=== PATIENT | female | born 1995 | race Caucasian/White ===

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

== ENCOUNTER 2017-06-22 10:46 | Outpatient (CLI) | payer OTHER | END 2017-06-22 10:47 | disposition critical access hospital (66) | LOC: EMS 10:46 | PROVIDERS: ATTEND Surgery | DX: R56.9 Unspecified convulsions (principal) | CPT/HCPCS: A0425; A0427 ==

== ENCOUNTER 2017-06-22 11:18 | Emergency (ER) | payer OTHER ==
[2017-06-22] MEDS ORDERED: LORazepam 2 MG/ML VIAL IVP STA ×2 (11:38→12:23)
[2017-06-22] MEDS ORDERED: SODIUM CHLORIDE 0.9% 1,000 ML IV ONE (11:49)
[2017-06-22] MEDS ORDERED: cefTRIAXone 1 GM in SODIUM CHLORIDE 0.9% MINIBAG 100 ML IV STA (11:49)
--- NOTE | 2017-06-22 11:52 | ED Physician Documentation ---
PD HPI SEIZURE - Stated complaint Stated Complaint: SZ - Chief complaint Chief Complaint: Neuro - History obtained from History obtained from: Family, EMS - History of Present Illness Timing - onset: Enter time (1030), Today Witnessed: Witnessed Number of seizures: Multiple, Lasted minutes Description of seizure activity: Generalized Injury during seizure: None Associated symptoms: Unknown History of seizures: First seizure Contributing factors: Sleep deprivation Similar symptoms before: Has not had sx before Recently seen: Not recently seen - Additional information Additional information: 23-year-old female with a history of depression on SSRI has developed acute seizure this morning witnessed by a family member. The patient did have a second seizure witnessed by medics in route to the hospital and she was administered Valium 5 mg intravenously. She has pulled the IV out and he has become uncooperative. The parents are uncertain of any recent illness that they do note that she has vomited yesterday. 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 CLASSIFICATION MANAGER: None : None HEENT: Chronic vision loss Psych: Depression, Anxiety Musculoskeletal: Fatigue Derm: None - Past Surgical History Past Surgical History: Yes Ortho: Other /POSITION CLASSIFICATION MANAGER: Hysterectomy, Breast reduction, Breast implants Derm: Other - Present Medications Home Medications: Ambulatory Orders Medication Instructions Recorded Confirmed Paroxetine HCl [Paxil] 20 mg PO DAILY #30 tablet 12/06/16 Sertraline HCl [Zoloft] 100 mg PO DAILY 12/06/16 12/06/16 - Allergies Allergies/Adverse Reactions: Allergies Allergy/AdvReac Type Severity Reaction Status Date / Time Penicillins Allergy Unknown Verified 12/06/16 16:46 - Social History Does the pt smoke?: No Smoking Status: Never smoker Does the pt drink ETOH?: No Does the pt have substance abuse?: No - Immunizations Immunizations are current?: Yes - POLST Patient has POLST: Yes PD ED PE NORMAL - Vitals Vital signs reviewed: Yes (hypertensive mild ) - General General: Well developed/nourished, Other (The patient is actively seizing. ) - HEENT HEENT: Atraumatic, PERRL, EOMI, Other (both TM's are mildly inflamed mucous membranes are dry) - Neck Neck: Supple, no meningeal sign, No bony TTP - Cardiac Cardiac: RRR, No murmur - Respiratory Respiratory: No respiratory distress, Clear bilaterally - Abdomen Abdomen: Soft, Non tender - Back Back: No CVA TTP, No spinal TTP - Derm Derm: Normal color, Warm and dry, No rash - Extremities Extremities: No deformity, No edema - Neuro Neuro: No motor deficit, No sensory deficit Eye Opening: To Voice Motor: Localizes to Pain Verbal: Inappropriate GCS Score: 11 Results - Vitals Vitals: Vital Signs - 24 hr 06/22/17 06/22/17 06/22/17 11:19 12:35 14:30 Temperature 36.1 C L Heart Rate 62 79 94 Respiratory 18 22 20 Rate Blood Pressure 135/65 H 106/61 O2 Saturation 98 100 97 06/22/17 15:31 Temperature Heart Rate 99 Respiratory 20 Rate Blood Pressure 94/55 L O2 Saturation 98 Oxygen O2 Source Room air - Labs Labs: Laboratory Tests 06/22/17 06/22/17 06/22/17 12:10 12:10 12:10 WBC 17.3 H RBC 4.81 Hgb 12.5 Hct 40.4 MCV 84.2 MCH 26.1 L MCHC 31.0 L RDW 16.3 H Plt Count 282 MPV 10.0 Neut # Not Reportable Lymph # Not Reportable [place] # Not Reportable Eos # Not Reportable Baso # Not Reportable Absolute Nucleated RBC Not Reportable Total Counted 100 Band Neuts % (Manual) 5 Abnorm Lymph % (Manual) 0 Metamyelocytes % 1 H Other Cells % 9 Nucleated RBC % Not Reportable Neutrophils # (Manual) 10.6 H Lymphocytes # (Manual) 3.5 Monocytes # (Manual) 1.4 H Eosinophils # (Manual) 0.2 Basophils # (Manual) 0.0 Differential Comment MANUAL DIFFERENTIAL Platelet Estimate NORMAL (130-450,000) Platelet Morphology 1+ GIANT PLATELETS RBC Morph Micro Appear NORMAL APPEARANCE Sodium 143 Potassium 3.3 L Chloride 108 Carbon Dioxide 14 L Anion Gap 21.0 H BUN 8 Creatinine 0.7 Estimated GFR (MDRD) 107 Glucose 161 H Calcium 9.7 Total Bilirubin 0.6 AST 33 ALT 25 Alkaline Phosphatase 76 Total Protein 8.8 H Albumin 4.6 Globulin 4.2 Albumin/Globulin Ratio 1.1 Lipase < 10 L Urine Color Urine Clarity Urine pH Ur Specific Beacon Urine Protein Urine Glucose (UA) Urine Ketones Urine Occult Blood Urine Nitrite Urine Bilirubin Urine Urobilinogen Ur Leukocyte Esterase Urine RBC Urine WBC Ur Squamous Epith Cells Urine Bacteria Urine Casts Urine Mucus Ur Microscopic Review Urine Culture Comments Urine HCG, Qual Salicylates < 6.0 Urine Opiates Screen Ur Oxycodone Screen Urine Methadone Screen Ur Propoxyphene Screen Acetaminophen < 10 L Ur Barbiturates Screen Ur Tricyclics Screen Ur Phencyclidine Scrn Ur Amphetamine Screen U Methamphetamines Scrn U Benzodiazepines Scrn Urine Cocaine Screen U Cannabinoids Screen Ethyl Alcohol < 5.0 06/22/17 06/22/17 14:20 14:20 WBC RBC Hgb Hct MCV MCH MCHC RDW Plt Count MPV Neut # Lymph # [place] # Eos # Baso # Absolute Nucleated RBC Total Counted Band Neuts % (Manual) Abnorm Lymph % (Manual) Metamyelocytes % Other Cells % Nucleated RBC % Neutrophils # (Manual) Lymphocytes # (Manual) Monocytes # (Manual) Eosinophils # (Manual) Basophils # (Manual) Differential Comment Platelet Estimate Platelet Morphology RBC Morph Micro Appear Sodium Potassium Chloride Carbon Dioxide Anion Gap BUN Creatinine Estimated GFR (MDRD) Glucose Calcium Total Bilirubin AST ALT Alkaline Phosphatase Total Protein Albumin Globulin Albumin/Globulin Ratio Lipase Urine Color YELLOW Urine Clarity CLEAR Urine pH 5.5 Ur Specific Beacon >=1.030 H Urine Protein TRACE Urine Glucose (UA) NEGATIVE Urine Ketones NEGATIVE Urine Occult Blood SMALL H Urine Nitrite NEGATIVE Urine Bilirubin NEGATIVE Urine Urobilinogen 0.2 (NORMAL) Ur Leukocyte Esterase NEGATIVE Urine RBC 0-5 Urine WBC 0-3 Ur Squamous Epith Cells FEW Squamous Urine Bacteria Few Urine Casts 0-2 Hyaline Casts Urine Mucus Few Strands Ur Microscopic Review INDICATED Urine Culture Comments NOT INDICATED Urine HCG, Qual NEGATIVE Salicylates Urine Opiates Screen NEGATIVE Ur Oxycodone Screen NEGATIVE Urine Methadone Screen NEGATIVE Ur Propoxyphene Screen NEGATIVE Acetaminophen Ur Barbiturates Screen POSITIVE H Ur Tricyclics Screen NEGATIVE Ur Phencyclidine Scrn NEGATIVE Ur Amphetamine Screen NEGATIVE U Methamphetamines Scrn NEGATIVE U Benzodiazepines Scrn NEGATIVE Urine Cocaine Screen NEGATIVE U Cannabinoids Screen POSITIVE H Ethyl Alcohol - Rads (name of study) CT head without Radiology: Prelim report reviewed (Impression: Normal head CT.), EMP read indepedently, See rad report 1 veiw chest Radiology: Prelim report reviewed (Impression: Single view radiography demonstrates no definite acute abnormality of the chest.), EMP read indepedently , See rad report PD MEDICAL DECISION MAKING - ED course Complexity details: reviewed results, re-evaluated patient, considered differential, d/w family ED course: 22-year-old female with a prior history of depression has had acute onset of seizure today and has no prior history of seizure. She did have otitis on examination and on initial evaluation the patient was unable to give any specific history. She appears postictal. She has a third seizure in the emergency department generalized tonic-clonic and requires IM Ativan. After a second IM dose of Ativan for a fourth seizure and IV is established she is given a i.v. dose of Ativan for seizure, rocephin for the OM and Dilantin is begun. She is initially given a 900 mg loading dose of 12.5 mg/kg and this improves but is not sufficient to stop the patient's seizures altogether. She is given a second loading dose of 600 mg for a total of 20 mg/kg. She is sedated and no longer seizing. She is able to speak a few words but does not make sense. CT is without evidence of acute tumor or abnormality. Blood work is unremarkable. Tox screen is unremarkable.Dr. Iris Morales is consulted in the case at [facility] neurology and recommends transfer the patient to the CCU for treatment of status epilepticus. Departure - Departure Disposition: 02 Transfer Acute Care Hosp Clinical Impression: Status epilepticus Discharge Date/Time: 06/22/17 15:45
[2017-06-22] MEDS: LORazepam 2 MG/ML VIAL IVP STA ×2 (12:10→12:25)
[2017-06-22] MEDS ORDERED: LORazepam 2 MG/ML VIAL ONE (12:10)
[2017-06-22] MEDS ORDERED: PHENYTOIN 100 MG/2 ML VIAL IVP STA ×2 (12:23→13:39)
[2017-06-22 12:29] LABS: BASOPHILS % (AUTO) 0.4 %; EOSINOPHILS % (AUTO) 1.1 %; HGB - HEMOGLOBIN 12.5 g/dL (12.0-16.0); LYMPHOCYTES % (AUTO) 27.5 %; MEAN CORPUSCULAR HEMOGLOBIN 26.1 pg (27.0-31.0); MEAN CORPUSCULAR VOLUME 84.2 fL (81.0-99.0); MONOCYTES % (AUTO) 7.6 %; NEUTROPHILS % (AUTO) 63.4 %; PLT - PLATELET COUNT 282 10^3/uL (130-450); RED BLOOD COUNT 4.81 10^6/uL (4.20-5.40); RED CELL DISTRIBUTION WIDTH 16.3 % (12.0-15.0); WHITE BLOOD COUNT 17.3 x10^3/uL (4.8-10.8)
[2017-06-22 12:31] LABS: ABNORMAL LYMPHS % (MANUAL) 0 %
[2017-06-22 12:39] LABS: ALBUMIN 4.6 g/dL (3.2-5.5); ALBUMIN/GLOBULIN RATIO 1.1 (1.0-2.2); ALKALINE PHOSPHATASE 76 IU/L (42-121); ALT ALANINE AMINOTRANSFERASE 25 IU/L (10-60); AST ASPARTATE AMINOTRANSFERASE 33 IU/L (10-42); BILIRUBIN,TOTAL 0.6 mg/dL (0.2-1.0); BUN - BLOOD UREA NITROGEN 8 mg/dL (6-20); CALCIUM 9.7 mg/dL (8.5-10.3); CARBON DIOXIDE - CO2 14 mmol/L (21-32); CHLORIDE 108 mmol/L (101-111); CREATININE 0.7 mg/dL (0.4-1.0); GFR - MDRD 107 (>89); GLUCOSE 161 mg/dL (70-100); SODIUM 143 mmol/L (135-145); TOTAL PROTEIN 8.8 g/dL (6.7-8.2)
[2017-06-22 12:40] LABS: LIPASE < 10 U/L (22-51)
[2017-06-22 13:04] LABS: BAND NEUTROPHILS % (MANUAL) 5 %; EOSINOPHILS # (MANUAL) 0.2 10^3/uL (0-0.7); LYMPHOCYTES # (MANUAL) 3.5 10^3/uL (1.5-3.5); LYMPHOCYTES % (MANUAL) 20 %; METAMYELOCYTES % (MANUAL) 1 %; MONOCYTES # (MANUAL) 1.4 10^3/uL (0.0-1.0); NEUTROPHILS # (MANUAL) 10.6 10^3/uL (1.5-6.6); NEUTROPHILS % (MANUAL) 56 %
[2017-06-22 13:05] LABS: OTHER CELLS % (MANUAL) 9 %; PLATELET MORPHOLOGY 1+ GIANT PLATELETS (NORMAL); RBC MORPHOLOGY (MULTIPLE) NORMAL APPEARANCE (NORMAL)
[2017-06-22 13:06] LABS: DIFFERENTIAL COMMENT MANUAL DIFFERENTIAL; PLATELET ESTIMATE, MANUAL NORMAL (130-450,000) (NORMAL)
--- NOTE | 2017-06-22 13:54 | CT Report ---
EXAM: CT HEAD EXAM DATE: 06/22/2017 01:14 PM. CLINICAL HISTORY: 1st seizure. COMPARISON: None. TECHNIQUE: Multiaxial CT images were obtained from the foramen magnum to the vertex. Reformats: Coron al. IV contrast: None. In accordance with CT protocol optimization, one or more of the following dose reduction techniques w ere utilized for this exam: automated exposure control, adjustment of mA and/or KV based on patient s ize, or use of iterative reconstructive technique. FINDINGS: Parenchyma: No intraparenchymal hemorrhage. No evidence of mass, midline shift, or CT findings of inf arction. Belle-white differentiation is distinct. Extraaxial Spaces: Normal for age. No subdural or epidural collections identified. Ventricles: Normal in size and position. Sinuses and Orbits: Imaged paranasal sinuses, orbits, and mastoids show no significant abnormality. Bones: No evidence of fracture or calvarial defect. Other: None. IMPRESSION: Normal head CT. [facility] Referring Provider Line: [phone] SITE ID: [id number]
[2017-06-22] MEDS ORDERED: PHENYTOIN IV SCH (14:00)
[2017-06-22] MEDS ORDERED: SODIUM CHLORIDE 0.9% IV SCH (14:00)
--- NOTE | 2017-06-22 14:18 | XRAY Report ---
EXAM: CHEST RADIOGRAPHY EXAM DATE: 06/22/2017 01:24 PM. CLINICAL HISTORY: Seizure, fever. COMPARISON: None. TECHNIQUE: 1 view. FINDINGS: Lungs/Pleura: Limited lung volumes. No definite pulmonary infiltrate. No pleural effusion or pneumoth orax. Mediastinum: Within exam limitations, the cardiomediastinal contour is normal. Other: None. IMPRESSION: Single-view radiography demonstrates no definite acute abnormality of the chest. [facility] Referring Provider Line: [phone] SITE ID: [id number]
[2017-06-22 14:28] LABS: MUDS CUTOFF CONCENTRATIONS CUTOFF CONC BELOW:
[2017-06-22 14:33] LABS: BILIRUBIN,URINE NEGATIVE (NEGATIVE); GLUCOSE, URINE (UA) NEGATIVE (NEGATIVE); KETONES,URINE (UA) NEGATIVE (NEGATIVE); LEUKOCYTE ESTERASE, URINE NEGATIVE (NEGATIVE); NITRITE,URINE NEGATIVE (NEGATIVE); OCCULT BLOOD,URINE SMALL (NEGATIVE); PH,URINE 5.5 PH (5.0-7.5); PROTEIN,URINE TRACE mg/dL (NEGATIVE); UROBILINOGEN,URINE 0.2 (NORMAL) E.U./dL (NORMAL)
[2017-06-22 14:34] LABS: CLARITY,URINE CLEAR (CLEAR); HCG UR QUAL NEGATIVE
[2017-06-22 14:42] LABS: BACTERIA,URINE Few /HPF (None Seen); CASTS, URINE 0-2 Hyaline Casts /LPF; MUCUS,URINE Few Strands; RBC,URINE 0-5 /HPF (0-5); SQUAMOUS EPITHELIAL CELL,UR FEW Squamous (<= Few)
[2017-06-22 14:43] LABS: AMPHETAMINE SCREEN,URINE NEGATIVE (NEGATIVE); BENZODIAZEPINES SCREEN, URINE NEGATIVE (NEGATIVE); COCAINE SCREEN URINE NEGATIVE (NEGATIVE); METHADONE SCREEN, URINE NEGATIVE (NEGATIVE); METHAMPHETAMINES SCREEN, URINE NEGATIVE (NEGATIVE); OPIATE SCREEN, URINE NEGATIVE (NEGATIVE); OXYCODONE SCREEN, URINE NEGATIVE (NEGATIVE); PROPOXYPHENE SCREEN, URINE NEGATIVE (NEGATIVE); TRICYCLIC ANTIDEPRESSANT,URINE NEGATIVE (NEGATIVE)
[2017-06-22 14:54] LABS: SALICYLATE < 6.0 mg/dL
[2017-06-22 14:55] LABS: ACETAMINOPHEN < 10 ug/mL (10-30)
[2017-06-22 15:36] VITALS: BP 94/55
== END 2017-06-22 15:45 | disposition short-term general hospital (02) ==
LOC: EDUNIT# → ED 11:18
DX: G40.901 Epilepsy, unspecified, not intractable, with status epilepticus (principal); H66.93 Otitis media, unspecified, bilateral
CPT/HCPCS: 36415; 70450; 71045; 80053; 80306; 80307; 80320; 80329; 81001; 81025; 83690; 85025; 96365; 96367; 96375; 96376; 99284; 99285; J2060; 81003; 87086

== ENCOUNTER 2017-06-22 15:49 | Outpatient (CLI) | payer OTHER | END 2017-06-22 15:50 | disposition short-term general hospital (02) | LOC: EMS 15:49 | PROVIDERS: ATTEND Surgery | DX: R56.9 Unspecified convulsions (principal) | CPT/HCPCS: A0170; A0425; A0426 ==

== ENCOUNTER 2017-10-11 09:34 | Outpatient (CLI) | payer OTHER | END 2017-10-11 09:35 | disposition critical access hospital (66) | LOC: EMS 09:34 | PROVIDERS: ATTEND Surgery | DX: R56.9 Unspecified convulsions (principal) | CPT/HCPCS: A0425; A0427 ==

== ENCOUNTER 2017-10-11 10:13 | Emergency (ER) | END 2017-10-11 14:19 | disposition short-term general hospital (02) | CPT/HCPCS: 36415; 51702; 70450; 71045; 72125; 80048; 80306; 82550; 84703; 85025; 93005; 96365; 96375; 99284; 99285; J2060 ==

== ENCOUNTER 2018-01-03 10:39 | Outpatient (CLI) | payer OTHER | END 2018-01-03 10:40 | disposition critical access hospital (66) | LOC: EMS 10:39 | PROVIDERS: ATTEND Surgery | DX: R56.9 Unspecified convulsions (principal) | CPT/HCPCS: A0425; A0427 ==

== ENCOUNTER 2018-01-03 11:21 | Observation (INO) | payer OTHER ==
--- NOTE | 2018-01-03 12:44 | ED Physician Documentation ---
PD HPI SEIZURE - Stated complaint Stated Complaint: SZ - Chief complaint Chief Complaint: Neuro - History obtained from History obtained from: Patient, Family - History of Present Illness Timing - onset: Enter time (1045), Today Witnessed: Witnessed Number of seizures: Multiple, Lasted minutes, Recovered between seizure Description of seizure activity: Generalized Injury during seizure: None Associated symptoms: Nausea / vomiting, Other (diaphoretic this morning and was awake all night.) History of seizures: Known seizure disorder Contributing factors: Sleep deprivation Similar symptoms before: Diagnosis (seizure) Recently seen: Admitted - Additional information Additional information: 22-year-old female with recent onset of a seizure disorder has had status twice in the past 2 months and she has now been started on a regular dose of Dilantin after her last hospitalization at [facility]. She states that she had her level checked 1 month ago and that level was good. She spent the night up last night until about 5:15 in the morning. She does not usually have this happen to her. She usually is able to get to sleep and stay asleep at night. She does take some Paxil and her Dilantin at night she is on about 300 mg of Dilantin. The patient's mother reports that she came into her room at about 1045 and found her drenched in sweat her bed wet and the patient seemed a bit confused. She helped her get into the bathroom where the mother since she might be getting ready to have a seizure and she laid her on the floor. She had a brief seizure and a brief postictal period and the patient was brought to the hospital. She slept most of her way to the hospital. She is now awake and alert. Review of Systems Constitutional: reports: Sweats. denies: Fever, Chills, Myalgias Eyes: denies: Decreased vision Ears: denies: Ear pain Nose: reports: Congestion. denies: Rhinorrhea / runny nose Throat: denies: Sore throat Cardiac: denies: Chest pain / pressure, Palpitations Respiratory: denies: Dyspnea, Cough GI: reports: Nausea. denies: Abdominal Pain, Vomiting, Constipation, Diarrhea : denies: Dysuria, Frequency Skin: denies: Rash Musculoskeletal: denies: Neck pain, Back pain, Extremity pain Neurologic: denies: Generalized weakness, Focal weakness, Numbness PD PAST MEDICAL HISTORY - Past Medical History Cardiovascular: None Respiratory: None Neuro: Seizure disorder Endocrine/Autoimmune: None GI: None SR ACCOUNT EXECUTIVE: None : None HEENT: Chronic vision loss Psych: Depression, Anxiety Musculoskeletal: Fatigue Derm: None - Past Surgical History Past Surgical History: Yes Ortho: Other /SR ACCOUNT EXECUTIVE: Hysterectomy, Breast reduction, Breast implants Derm: Other - Present Medications Home Medications: Ambulatory Orders Medication Instructions Recorded Confirmed Paroxetine HCl [Paxil] 20 mg PO DAILY PM 01/03/18 Phenytoin [Dilantin] 100 mg ORAL DAILY PM 01/03/18 01/03/18 - Allergies Allergies/Adverse Reactions: Allergies Allergy/AdvReac Type Severity Reaction Status Date / Time Penicillins Allergy Unknown Verified 01/03/18 11:27 - Social History Does the pt smoke?: No Smoking Status: Never smoker Does the pt drink ETOH?: No Does the pt have substance abuse?: No - Immunizations Immunizations are current?: Yes - POLST Patient has POLST: Yes PD ED PE NORMAL - Vitals Vital signs reviewed: Yes (normal ) - General General: Alert and oriented X 3, No acute distress, Well developed/nourished - HEENT HEENT: Atraumatic, PERRL, EOMI, Ears normal, Moist mucous membranes, Pharynx benign, Dentition benign - Neck Neck: Supple, no meningeal sign, No bony TTP - Cardiac Cardiac: RRR, No murmur - Respiratory Respiratory: No respiratory distress, Clear bilaterally - Abdomen Abdomen: Soft, Non tender - Back Back: No CVA TTP, No spinal TTP - Derm Derm: Normal color, Warm and dry, No rash - Extremities Extremities: No deformity, No edema - Neuro Neuro: Alert and oriented X 3, overhead crane technician 2-12 intact, No motor deficit, No sensory deficit, Normal speech Eye Opening: Spontaneous Motor: Obeys Commands Verbal: Oriented GCS Score: 15 - Psych Psych: Normal mood, Normal affect Results - Vitals Vitals: Vital Signs - 24 hr 01/03/18 01/03/18 01/03/18 11:21 13:19 14:25 Temperature 36.1 C L Heart Rate 72 78 132 H Respiratory 16 21 25 H Rate Blood Pressure 112/60 126/66 O2 Saturation 100 98 96 01/03/18 01/03/18 01/03/18 14:32 14:53 15:46 Temperature Heart Rate 124 H 105 H 113 H Respiratory 22 16 Rate Blood Pressure 112/46 L 96/61 O2 Saturation 99 95 99 01/03/18 01/03/18 01/03/18 15:55 16:05 16:10 Temperature Heart Rate 85 86 83 Respiratory 16 16 Rate Blood Pressure 111/81 H 108/81 H 109/74 O2 Saturation 96 99 01/03/18 16:22 Temperature Heart Rate 83 Respiratory Rate Blood Pressure 115/81 H O2 Saturation 99 Oxygen O2 Source Room air - Labs Labs: Laboratory Tests 01/03/18 01/03/18 01/03/18 14:12 14:12 14:40 WBC 16.4 H RBC 4.28 Hgb 11.7 L Hct 35.5 L MCV 82.9 MCH 27.2 MCHC 32.9 RDW 15.2 H Plt Count 229 MPV 9.0 Neut # (Auto) 14.5 H Lymph # (Auto) 1.0 L Coleman # (Auto) 0.9 Eos # (Auto) 0.0 Baso # (Auto) 0.1 Absolute Nucleated RBC 0.00 Nucleated RBC % 0.0 Sodium 138 Potassium 3.4 L Chloride 107 Carbon Dioxide 15 L Anion Gap 16.0 H BUN 6 Creatinine 0.6 Estimated GFR (MDRD) 127 Glucose 142 H Calcium 8.5 Total Bilirubin < 0.2 L AST 44 H ALT 36 Alkaline Phosphatase 126 H Total Protein 8.0 Albumin 4.0 Globulin 4.0 Albumin/Globulin Ratio 1.0 Lipase 23 Phenytoin 5.1 PD MEDICAL DECISION MAKING - ED course Complexity details: reviewed results, re-evaluated patient, considered differential, d/w patient, d/w family ED course: 22-year-old female with a known seizure disorder who is on Dilantin has had a seizure this morning and this is described by the patient's mother is being much shorter than what she has had previously and she woke up pretty easily. She had a second seizure here in the emergency department and she was loaded with Dilantin after having to 2 mg doses of Ativan. There was a delay in starting the Dilantin as we were unable to obtain blood from the patient initially. She subsequently been loaded with 300 mg of Dilantin intravenously and her records from hospitalizations at [facility] were reviewed. She was switched from Dilantin to Keppra on her initial hospitalization when she became toxic with nystagmus and an elevated level, and was on monotherapy with Keppra for 3 months. She subsequently came to the hospital here in September with status epilepticus and required transfer back to [facility]. At that time here in the ED her status was broken at the time of transfer with a load of dilantin. Her Keppra was stopped and she was started on Dilantin and she tolerated it. I have consulted Dr. Nails neurologist flight surgeon for Dr. Houston and he recommends admission here for observation until seizure free for 24 hours, and loading with an additional 750mg of IV dilatnin and increasing the oral dose to 350mg given as 150mg in the am and 200mg in the evening. Dr. Church is consulted in the case and graciously agrees to admit the patient to the CCU for overnight observation and stabilization of the dilantin dose. - Sepsis Event Vital Signs: Vital Signs - 24 hr 01/03/18 01/03/18 01/03/18 11:21 13:19 14:25 Temperature 36.1 C L Heart Rate 72 78 132 H Respiratory 16 21 25 H Rate Blood Pressure 112/60 126/66 O2 Saturation 100 98 96 01/03/18 01/03/18 01/03/18 14:32 14:53 15:46 Temperature Heart Rate 124 H 105 H 113 H Respiratory 22 16 Rate Blood Pressure 112/46 L 96/61 O2 Saturation 99 95 99 01/03/18 01/03/18 01/03/18 15:55 16:05 16:10 Temperature Heart Rate 85 86 83 Respiratory 16 16 Rate Blood Pressure 111/81 H 108/81 H 109/74 O2 Saturation 96 99 01/03/18 16:22 Temperature Heart Rate 83 Respiratory Rate Blood Pressure 115/81 H O2 Saturation 99 Oxygen O2 Source Room air Departure - Departure Disposition: ED Place in Observation Clinical Impression: Recurrent seizures
[2018-01-03] MEDS ORDERED: SODIUM CHLORIDE 0.9% 1,000 ML IV ONE ×2 (12:45→16:44)
[2018-01-03] MEDS ORDERED: ONDANSETRON 4 MG/2 ML VIAL IVP STA (13:09)
[2018-01-03] MEDS ORDERED: ONDANSETRON 4 MG/2 ML VIAL ONE (13:10)
[2018-01-03] MEDS ORDERED: ACETAMINOPHEN 325 MG TABLET PO STA (13:12)
[2018-01-03] MEDS ORDERED: LORazepam 2 MG/ML VIAL ONE ×2 (14:20→14:40)
[2018-01-03 14:24] LABS: BASOPHILS # (AUTO) 0.1 10^3/uL (0.0-0.1); BASOPHILS % (AUTO) 0.4 %; HGB - HEMOGLOBIN 11.7 g/dL (12.0-16.0); LYMPHOCYTES % (AUTO) 5.9 %; MEAN CORPUSCULAR HEMOGLOBIN 27.2 pg (27.0-31.0); MEAN CORPUSCULAR HGB CONC 32.9 g/dL (32.0-36.0); MEAN CORPUSCULAR VOLUME 82.9 fL (81.0-99.0); MONOCYTES # (AUTO) 0.9 10^3/uL (0.0-1.0); MONOCYTES % (AUTO) 5.3 %; NEUTROPHILS # (AUTO) 14.5 10^3/uL (1.5-6.6); NEUTROPHILS % (AUTO) 88.4 %; PLT - PLATELET COUNT 229 10^3/uL (130-450); RED BLOOD COUNT 4.28 10^6/uL (4.20-5.40); RED CELL DISTRIBUTION WIDTH 15.2 % (12.0-15.0); WHITE BLOOD COUNT 16.4 x10^3/uL (4.8-10.8)
[2018-01-03] MEDS ORDERED: LORazepam 2 MG/ML VIAL IVP STA ×2 (14:39→14:40)
[2018-01-03 15:04] LABS: ALKALINE PHOSPHATASE 126 IU/L (42-121); ALT ALANINE AMINOTRANSFERASE 36 IU/L (10-60); AST ASPARTATE AMINOTRANSFERASE 44 IU/L (10-42); BILIRUBIN,TOTAL < 0.2 mg/dL (0.2-1.0); BUN - BLOOD UREA NITROGEN 6 mg/dL (6-20); CALCIUM 8.5 mg/dL (8.5-10.3); CARBON DIOXIDE - CO2 15 mmol/L (21-32); CHLORIDE 107 mmol/L (101-111); CREATININE 0.6 mg/dL (0.4-1.0); GFR - MDRD 127 (>89); GLUCOSE 142 mg/dL (70-100); LIPASE 23 U/L (22-51); SODIUM 138 mmol/L (135-145)
[2018-01-03] MEDS ORDERED: PHENYTOIN 100 MG/2 ML VIAL IVP STA ×2 (15:21→17:21)
[2018-01-03] MEDS ORDERED: PHENYTOIN 100 MG/2 ML VIAL IVP ONE (15:41)
[2018-01-03] MEDS ORDERED: POTASSIUM BICARB 25 MEQ TABLET PO STA (16:24)
[2018-01-03 19:30] LABS: BILIRUBIN,URINE NEGATIVE (NEGATIVE); GLUCOSE, URINE (UA) NEGATIVE (NEGATIVE); KETONES,URINE (UA) NEGATIVE (NEGATIVE); LEUKOCYTE ESTERASE, URINE NEGATIVE (NEGATIVE); NITRITE,URINE NEGATIVE (NEGATIVE); OCCULT BLOOD,URINE NEGATIVE (NEGATIVE); PH,URINE 6.5 PH (5.0-7.5); PROTEIN,URINE NEGATIVE (NEGATIVE); UROBILINOGEN,URINE 0.2 (NORMAL) E.U./dL (NORMAL)
[2018-01-03 19:35] LABS: CLARITY,URINE CLEAR (CLEAR); HCG UR QUAL NEGATIVE
[2018-01-03] MEDS ORDERED: PROCHLORPERAZINE 10 MG/2 ML VIAL IVP PRN (19:55)
[2018-01-03] MEDS ORDERED: SODIUM CHLORIDE FLUSH 0.9% 10 ML SYRINGE IVP PRN (19:55)
[2018-01-03] MEDS ORDERED: PROMETHAZINE 25 MG/1 ML VIAL IM PRN (19:55)
[2018-01-03] MEDS ORDERED: ZOLPIDEM 5 MG TABLET PO PRN (19:55)
[2018-01-03] MEDS ORDERED: ACETAMINOPHEN 325 MG TABLET PO PRN (19:55)
[2018-01-03] MEDS ORDERED: oxyCODONE 5 MG TABLET PO PRN (19:55)
[2018-01-03] MEDS ORDERED: ONDANSETRON 4 MG/2 ML VIAL IVP PRN (19:55)
--- NOTE | 2018-01-03 20:11 | HISTORY & PHYSICAL EXAMINATION ---
Chief Complaint - Chief Complaint Chief Complaint: Seizure History of Present Illness - Admitted From Admitted From:: Emergency Department - History Obtained From Records Reviewed: Yes History obtained from: Patient and medical records Exam Limitations: None - History of Present Illness HPI Comment/Other: Patient is a 22-year-old female with a past medical history significant for seizure disorder and depression who is brought into the emergency department by her mother due to seizure activity at home. The patient has a recent onset of seizure disorder as she had an episode of status epilepticus for the first time in June 2017 when she was admitted to [facility] under the neurology service. She spent a week in the hospital and had continuous seizures for several days before they resolved with medication and she returned to her baseline mental status. She is currently on a regular dose of Dilantin 300 mg at night. She states that she had her level checked 1 month ago and at that time the level was normal. She states that she was up last night until about 5:15 in the morning. She states that she does not usually stay up this late but she states she just could not get to sleep last night and even when she would doze off she would wake up and was unable to get back to sleep. The patient does not recall events from this morning but her mother states that she walked into the patient's room around 1045 this morning and found her daughter drenched in sweat. She noticed that the patient had wet the bed and seemed to be confused and flaccid. The mother was able to help the patient up out of bed and into the bathroom so that the patient could change her clothes as they were wet. The mother states that once she got her daughter into the bathroom the patient seemed as though she was going to have another seizure therefore the patient's mother laid her on the floor of the bathroom. There the patient had a brief seizure with tonic clonic activity and a brief post ictal period. The mother stated this was much shorter than the seizures she has had in the past. The patient's mother then brought her into the hospital The patient's mother states that through most of the trip to the hospital the patient was drowsy or asleep as she still appeared to be postictal. By the time the patient arrived in the hospital she was alert and awake. The patient denies any recent cough, shortness of breath, abdominal pain, nausea, vomiting, diarrhea, fevers, chills, dysuria, increased urinary frequency, increased urinary urgency, back pain, neck stiffness, focal neurologic deficits, body aches, sore throat, nasal congestion, headache, changes in her appetite, skin rash, hair loss or night sweats. Once the patient arrived in the emergency department she had a another tonic-clonic seizure and was given 2 mg doses of Ativan. Her seizure resolved and she had a short post ictal period. The patient does not remember any of this. The patient was also loaded with 300 mg of IV Dilantin. The emergency room physician was able to obtain the patient's medical records from [facility]. Medical record showed that the patient was switched from Dilantin to Keppra when she became toxic with nystagmus and an elevated level, and was on monotherapy with Keppra for 3 months. She subsequently came to our hospital in September with status epilepticus and required transfer back to [facility]. At that time in the emergency department her status broke and she was loaded with Dilantin. Her Keppra was stopped and she was started on Dilantin which she has been tolerating. The emergency room physician consulted Dr. Nails neurologist operations support analyst for [facility] and he recommended placement in observation at [facility] until the patient is free of se izures for 24 hours. He also recommended loading the patient with an additional 750 mg of IV Dilantin and increasing the oral Dilantin dose to 350 mg given as 150 mg in the morning and 200 mg in the evening. History - Past Medical History Cardiovascular: reports: None Respiratory: reports: None Neuro: reports: Seizure disorder Endocrine/Autoimmune: reports: None GI: reports: None SANDING LINE OPERATOR: reports: None : reports: None HEENT: reports: Chronic vision loss Psych: reports: Depression, Anxiety Musculoskeletal: reports: Fatigue Derm: reports: None MRSA Hx?: No - Past Surgical History Ortho: reports: Other /SANDING LINE OPERATOR: reports: Hysterectomy, Breast reduction, Breast implants Derm: reports: Other - Family & Social History Family History: Mother: Alive and Well, Mental Illness (Aunts and mom both with depression), Father: Alive and Well, Brother: Alive and Well, Other family: Mental Illness Family History Comment/Other: Both mother and aunts have migraines Living arrangement: At home Living Situation: With family Social History Notes: The patient lives in [place], [place] with her parents. She has 1 brother. She is registered to go to school at [employer] but has been unable to attend so far due to her seizures. She has no children and is single. The patient denies any tobacco use. She does occasionally drink alcohol she states that she has 1-2 beers about once a month. She does occasionally smoke marijuana. She denies any other illicit drug use. - POLST Patient has POLST: No POLST Status: Full Code Meds/Allgy - Home Medications Home Medications: Ambulatory Orders Medication Instructions Recorded Confirmed Paroxetine HCl [Paxil] 20 mg PO DAILY PM 01/03/18 Phenytoin [Dilantin] 100 mg ORAL DAILY PM 01/03/18 01/03/18 - Allergies Allergies/Adverse Reactions: Allergies Allergy/AdvReac Type Severity Reaction Status Date / Time Penicillins Allergy Unknown Verified 01/03/18 11:27 Review of Systems - Other Findings Other Findings: A comprehensive review of systems was performed the pertinent positives and negatives are stated above in the HPI and the remainder of the review of systems is negative. Exam - Vital Signs Reviewed Vital Signs: Yes Vital Signs: Vital Signs x48h Pulse Resp BP Pulse Ox 01/03/18 18:30 84 16 127/59 L 99 01/03/18 16:22 83 115/81 H 99 01/03/18 16:10 83 16 109/74 99 01/03/18 16:05 86 16 108/81 H 96 01/03/18 15:55 85 111/81 H 01/03/18 15:46 113 H 16 96/61 99 01/03/18 14:53 105 H 95 01/03/18 14:32 124 H 22 112/46 L 99 01/03/18 14:25 132 H 25 H 126/66 96 01/03/18 13:19 78 21 112/60 98 - Physical Exam General Appearance: positive: No acute distress, Alert, Other (Does not recall events from earlier but otherwise answers questions appropriately and is very alert.) Eyes Bilateral: positive: Normal inspection, PERRL, EOMI, No lid inflammation, Conjunctivae nml, No scleral icterus ENT: positive: ENT inspection nml, Pharynx nml, No signs of dehydration. negative: Purulent nasal drainage, Pharyngeal erythema, Oral lesions Neck: positive: Nml inspection, Thyroid nml, No JVD, Trachea midline. negative: Thyromegaly, Lymphadenopathy (R), Lymphadenopathy (L), Stiff neck, Carotid bruit, Tracheal deviation Respiratory: positive: Chest non-tender, No respiratory distress, Breath sounds nml. negative: Wheezes, Rales, Rhonchi Cardiovascular: positive: Regular rate & rhythm, No murmur, No gallop Peripheral Pulses: positive: 2+ Abdomen: positive: Non-tender, No organomegaly, Nml bowel sounds, No distention. negative: Guarding, Rebound, Hepatomegaly Back: positive: Nml inspection. negative: CVA tenderness (R), CVA tenderness (L) Skin: positive: Color nml, No rash, Warm, Dry. negative: Cyanosis, Diaphoresis, Pallor, Skin rash Extremities: positive: Non-tender, Full ROM, Nml appearance, No pedal edema Neurologic/Psychiatric: positive: Oriented x3, CN's nml (2-12), Motor nml, Sensation nml, Mood/affect nml Conclusion/Plan - Problem List (1) Recurrent seizures Conclusion/Plan: Patient has had recurrent seizures since June 2017 when she had her first episode of seizure activity. At that time the patient had status epilepticus and required 1 week hospitalization at [facility] under the care of neurology. The patient did undergo EEG monitoring as well as an MRI which does not appear to have revealed any focus of the seizures or any structural disease. The patient has since been hospitalized again in September 2017 at [facility] and was recently maintained on Dilantin 300 mg daily. She presented to the emergency department with a another episode of tonic-clonic seizure activity at home with 1 witnessed and 1 presumed seizure at home. The patient again had another seizure once she arrived in the emergency department. The neurologist operations support analyst Dr. Nails was consulted and requested that the patient be loaded with 1 g of Dilantin along with increasing her dose of daily Dilantin from 300-350 mg with 200 mg given at night and 150 mg in the morning. He asked that the patient be placed in observation and monitored for further seizure activity. He also requested that we check a Dilantin level in the morning. The neurologist recommended if the patient goes 24 hours without any seizure activity that she can be safely discharged home. Plan: Place patient in observation Neuro checks Start Dilantin 200 mg this evening and 150 mg in the morning Patient has already been given 1 g of Dilantin in the emergency department IV Dilantin level in the morning Once patient is seizure-free for 24 hours she can be discharged home her last seizure was at 2:30 PM on 01/03/2018 We will not hesitate to consult neurology at [facility] if patient continues to have seizures. (2) Depression Conclusion/Plan: Patient has a history of depression and takes Paxil at home. We will continue the patient's home dose of Paxil while she is hospitalized here the patient's mood appears to be stable at this time. Qualifiers: Depression Type: unspecified Qualified Code(s): F32.9 - Major depressive disorder, single episode, unspecified - Lab Results Lab results reviewed: Yes Fish Bones: 01/03/18 14:12 01/03/18 14:40 Other Lab Results: Laboratory Results WBC 16.4 x10^3/uL (4.8-10.8) H 01/03/18 14:12 RBC 4.28 10^6/uL (4.20-5.40) 01/03/18 14:12 Hgb 11.7 g/dL (12.0-16.0) L 01/03/18 14:12 Hct 35.5 % (37.0-47.0) L 01/03/18 14:12 MCV 82.9 fL (81.0-99.0) 01/03/18 14:12 MCH 27.2 pg (27.0-31.0) 01/03/18 14:12 MCHC 32.9 g/dL (32.0-36.0) 01/03/18 14:12 RDW 15.2 % (12.0-15.0) H 01/03/18 14:12 Plt Count 229 10^3/uL (130-450) 01/03/18 14:12 MPV 9.0 fL (7.9-10.8) 01/03/18 14:12 Neut # (Auto) 14.5 10^3/uL (1.5-6.6) H 01/03/18 14:12 Lymph # (Auto) 1.0 10^3/uL (1.5-3.5) L 01/03/18 14:12 Charlton # (Auto) 0.9 10^3/uL (0.0-1.0) 01/03/18 14:12 Eos # (Auto) 0.0 10^3/uL (0.0-0.7) 01/03/18 14:12 Baso # (Auto) 0.1 10^3/uL (0.0-0.1) 01/03/18 14:12 Absolute Nucleated RBC 0.00 x10^3/uL 01/03/18 14:12 Nucleated RBC % 0.0 /100WBC 01/03/18 14:12 Sodium 138 mmol/L (135-145) 01/03/18 14:40 Potassium 3.4 mmol/L (3.5-5.0) L 01/03/18 14:40 Chloride 107 mmol/L (101-111) 01/03/18 14:40 Carbon Dioxide 15 mmol/L (21-32) L 01/03/18 14:40 Anion Gap 16.0 (6-13) H 01/03/18 14:40 BUN 6 mg/dL (6-20) 01/03/18 14:40 Creatinine 0.6 mg/dL (0.4-1.0) 01/03/18 14:40 Estimated GFR (MDRD) 127 (>89) 01/03/18 14:40 Glucose 142 mg/dL (70-100) H 01/03/18 14:40 Calcium 8.5 mg/dL (8.5-10.3) 01/03/18 14:40 Total Bilirubin < 0.2 mg/dL (0.2-1.0) L 01/03/18 14:40 AST 44 IU/L (10-42) H 01/03/18 14:40 ALT 36 IU/L (10-60) 01/03/18 14:40 Alkaline Phosphatase 126 IU/L (42-121) H 01/03/18 14:40 Total Protein 8.0 g/dL (6.7-8.2) 01/03/18 14:40 Albumin 4.0 g/dL (3.2-5.5) 01/03/18 14:40 Globulin 4.0 g/dL (2.1-4.2) 01/03/18 14:40 Albumin/Globulin Ratio 1.0 (1.0-2.2) 01/03/18 14:40 Lipase 23 U/L (22-51) 01/03/18 14:40 Urine Color YELLOW 01/03/18 19:15 Urine Clarity CLEAR (CLEAR) 01/03/18 19:15 Urine pH 6.5 PH (5.0-7.5) 01/03/18 19:15 Ur Specific [place] 1.025 (1.002-1.030) 01/03/18 19:15 Urine Protein NEGATIVE mg/dL (NEGATIVE) 01/03/18 19:15 Urine Glucose (UA) NEGATIVE mg/dL (NEGATIVE) 01/03/18 19:15 Urine Ketones NEGATIVE mg/dL (NEGATIVE) 01/03/18 19:15 Urine Occult Blood NEGATIVE (NEGATIVE) 01/03/18 19:15 Urine Nitrite NEGATIVE (NEGATIVE) 01/03/18 19:15 Urine Bilirubin NEGATIVE (NEGATIVE) 01/03/18 19:15 Urine Urobilinogen 0.2 (NORMAL) E.U./dL (NORMAL) 01/03/18 19:15 Ur Leukocyte Esterase NEGATIVE (NEGATIVE) 01/03/18 19:15 Ur Microscopic Review NOT INDICATED 01/03/18 19:15 Urine Culture Comments NOT INDICATED 01/03/18 19:15 Urine HCG, Qual NEGATIVE 01/03/18 19:15 Phenytoin 5.1 ug/mL 01/03/18 14:12 Core Measures - Anticipated LOS I expect patient to be DC'd or transferred within 96 hours.: Yes - DVT/VTE - Prophylaxis VTE/DVT Device ordered at admit?: Yes
[2018-01-03] MEDS ORDERED: PARoxetine 10 MG TABLET PO SCH (21:00)
[2018-01-03] MEDS ORDERED: PHENYTOIN ER 100 MG CAPSULE PO SCH ×2 (21:00)
[2018-01-04] MEDS: SODIUM CHLORIDE FLUSH 0.9% 10 ML SYRINGE IVP SCH ×2 (00:32→10:31)
[2018-01-04 06:50] LABS: BASOPHILS % (AUTO) 0.4 %; EOSINOPHILS # (AUTO) 0.1 10^3/uL (0.0-0.7); EOSINOPHILS % (AUTO) 0.6 %; HGB - HEMOGLOBIN 10.8 g/dL (12.0-16.0); LYMPHOCYTES # (AUTO) 1.4 10^3/uL (1.5-3.5); LYMPHOCYTES % (AUTO) 16.3 %; MEAN CORPUSCULAR HEMOGLOBIN 27.7 pg (27.0-31.0); MEAN CORPUSCULAR HGB CONC 33.3 g/dL (32.0-36.0); MEAN PLATELET VOLUME 8.8 fL (7.9-10.8); MONOCYTES # (AUTO) 0.9 10^3/uL (0.0-1.0); MONOCYTES % (AUTO) 9.9 %; NEUTROPHILS # (AUTO) 6.4 10^3/uL (1.5-6.6); NEUTROPHILS % (AUTO) 72.8 %; PLT - PLATELET COUNT 206 10^3/uL (130-450); RED BLOOD COUNT 3.91 10^6/uL (4.20-5.40); RED CELL DISTRIBUTION WIDTH 14.8 % (12.0-15.0); WHITE BLOOD COUNT 8.7 x10^3/uL (4.8-10.8)
[2018-01-04 07:03] LABS: ALBUMIN 3.5 g/dL (3.2-5.5); ALBUMIN/GLOBULIN RATIO 1.1 (1.0-2.2); BILIRUBIN,TOTAL 0.4 mg/dL (0.2-1.0); CALCIUM 8.5 mg/dL (8.5-10.3); CREATININE 0.6 mg/dL (0.4-1.0); MAGNESIUM 2.1 mg/dL (1.7-2.8); TOTAL PROTEIN 6.8 g/dL (6.7-8.2)
[2018-01-04 08:21] VITALS: BP 106/50
[2018-01-04] MEDS ORDERED: POLYETHYLENE GLYCOL 3350 17 GM PACKET PO SCH (09:00)
[2018-01-04] MEDS ORDERED: PHENYTOIN ER 100 MG CAPSULE PO SCH ×2 (09:00→12:00)
[2018-01-04] MEDS ORDERED: FAMOTIDINE 20 MG TABLET PO SCH (09:00)
[2018-01-04] MEDS ORDERED: ENOXAPARIN 40 MG/0.4 ML SYRINGE SUBQ SCH (09:00)
[2018-01-04 11:36] LABS: HB2 TOTAL 11.3 g/dL; HEMOGLOBIN A1C 0.32 g/dL; HEMOGLOBIN A1C % 4.7 % (4.6-6.2)
--- NOTE | 2018-01-04 14:28 | Discharge Plan ---
Discharge Plan Disposition: Home, Self Care Condition: Good Prescriptions: LORazepam [Lorazepam] 0.5 mg PO Q4H PRN #20 tablet PRN Reason: Anxiety Paroxetine HCl [Paxil] 30 mg PO DAILY #30 tablet Phenytoin [Dilantin] 300 mg PO HS #30 capsule Phenytoin [Dilantin] 100 mg PO DAILY #30 capsule Diet: Regular Activity Restrictions: No Restrictions Shower Restrictions: No Weight Bearing: Full Weight Additional Instructions or Follow Up instructions: You were admitted to observation for seizures. [facility] neurology was called who recommended high dose dilantin while in the ED in an IV form, followed by home medication adjustments. You were not thought to have any further seizures, so it is safe for you to return home today. An echocardiogram was completed to rule out cardiac causes to your seizures, and preliminary results are shown to be normal. I will give you a small amount of lorazepam in the event that you experience further seizures. It is recommended that you follow up with your neurologist early this week and see your PCP within one week. No Smoking: If you smoke, Please STOP! Call for help. Follow-up with: VANE BUTLER [Primary Care Provider] -
--- NOTE | 2018-01-04 14:32 | DISCHARGE SUMMARY ---
Discharge Summary Admit Date: 01/03/18 Discharge Date: 01/04/18 Discharging Provider: DAKOTA Andrade Primary Care Provider: Kwan Hammond Code Status: Attempt Resuscitation Condition at Discharge: Good Discharge Disposition: 01 Home, Self Care - DIAGNOSES Admission Diagnoses: Epilepsy, unspecified, not intractable, without status epilepticus (G40.909) Major depressive disorder, single episode, unspecified (F32.9) Discharge Diagnoses with Status of Each Condition: Recurrent seizures (G40.909) chronic, stable. Depression (F32.9) chronic, stable. Stress (F43.9)chronic, stable. - HPI History of Present Illness: HPI per Dr. Holbrook: Patient is a 22-year-old female with a past medical history significant for seizure disorder and depression who is brought into the emergency department by her mother due to seizure activity at home. The patient has a recent onset of seizure disorder as she had an episode of status epilepticus for the first time in June 2017 when she was admitted to [facility] under the neurology service. She spent a week in the hospital and had continuous seizures for several days before they resolved with medication and she returned to her baseline mental status. She is currently on a regular dose of Dilantin 300 mg at night. She states that she had her level checked 1 month ago and at that time the level was normal. She states that she was up last night until about 5:15 in the morning. She states that she does not usually stay up this late but she states she just could not get to sleep last night and even when she would doze off she would wake up and was unable to get back to sleep. The patient does not recall events from this morning but her mother states that she walked into the patient's room around 1045 this morning and found her daughter drenched in sweat. She noticed that the patient had wet the bed and seemed to be confused and flaccid. The mother was able to help the patient up out of bed and into the bathroom so that the patient could change her clothes as they were wet. The mother states that once she got her daughter into the bathroom the patient seemed as though she was going to have another seizure therefore the patient's mother laid her on the floor of the bathroom. There the patient had a brief seizure with tonic clonic activity and a brief post ictal period. The mother stated this was much shorter than the seizures she has had in the past. The patient's mother then brought her into the hospital The patient's mother states that through most of the trip to the hospital the patient was drowsy or asleep as she still appeared to be postictal. By the time the patient arrived in the hospital she was alert and awake. The patient denies any recent cough, shortness of breath, abdominal pain, nausea, vomiting, diarrhea, fevers, chills, dysuria, increased urinary frequ ency, increased urinary urgency, back pain, neck stiffness, focal neurologic deficits, body aches, sore throat, nasal congestion, headache, changes in her appetite, skin rash, hair loss or night sweats. Once the patient arrived in the emergency department she had a another tonic- clonic seizure and was given 2 mg doses of Ativan. Her seizure resolved and she had a short post ictal period. The patient does not remember any of this. The patient was also loaded with 300 mg of IV Dilantin. The emergency room physician was able to obtain the patient's medical records from [facility]. Medical record showed that the patient was switched from Dilantin to Keppra when she became toxic with nystagmus and an elevated level, and was on monotherapy with Keppra for 3 months. She subsequently came to our hospital in September with status epilepticus and required transfer back to [facility]. At that time in the emergency department her status broke and she was loaded with Dilantin. Her Keppra was stopped and she was started on Dilantin which she has been tolerating. The emergency room physician consulted Dr. Nails neurologist family intervention specialist for [facility] and he recommended placement in observation at [facility] until the patient is free of seizures for 24 hours. He also recommended loading the patient with an additional 750 mg of IV Dilantin and increasing the oral Dilantin dose to 350 mg given as 150 mg in the morning and 200 mg in the evening. - HOSPITAL COURSE Hospital Course: The patient's home dilantin dose was adjusted as per her neurologist recommendations. She did not have any further unwitnessed seizures and in stable condition at the time of discharge. Due to the apprehension of her 2 mothers, the patient was given a small Lorazepam dose in the event of any more acute seizures. The patient was ambulatory, free of symptoms, and tolerating meals. She was discharged home with her parents in medical stable condition. - ALLERGIES Allergies/Adverse Reactions: Allergies Allergy/AdvReac Type Severity Reaction Status Date / Time Penicillins Allergy Unknown Verified 01/03/18 11:27 - MEDICATIONS Home Medications: Ambulatory Orders Medication Instructions Recorded Confirmed LORazepam [Lorazepam] 0.5 mg PO Q4H PRN #20 tablet 01/04/18 Paroxetine HCl [Paxil] 30 mg PO DAILY #30 tablet 01/04/18 Phenytoin [Dilantin] 100 mg PO DAILY #30 capsule 01/04/18 Phenytoin [Dilantin] 300 mg PO HS #30 capsule 01/04/18 - PHYSICAL EXAM AT DISCHARGE General Appearance: positive: No acute distress, Alert Eyes Bilateral: positive: Normal inspection, PERRL ENT: positive: ENT inspection nml, Pharynx nml, No signs of dehydration Neck: positive: Nml inspection, Thyroid nml, No JVD, Trachea midline Respiratory: positive: Chest non-tender, No respiratory distress, Breath sounds nml Cardiovascular: positive: Regular rate & rhythm, No murmur, No gallop Peripheral Pulses: positive: 2+ Abdomen: positive: Non-tender, Nml bowel sounds Back: positive: Nml inspection Skin: positive: Color nml, No rash, Warm, Dry Extremities: positive: Non-tender, Full ROM, Nml appearance, No pedal edema Neurologic/Psychiatric: positive: Oriented x3, CN's nml (2-12), Motor nml, Sensation nml, Mood/affect nml Reflexes: Bicep (R): 3+, Bicep (L): 3+ - LABS Result Diagrams: 01/04/18 06:38 01/04/18 06:38 - FOLLOW UP Follow Up: Disposition: Home, Self Care Condition: Good Prescriptions: LORazepam [Lorazepam] 0.5 mg PO Q4H PRN #20 tablet PRN Reason: Anxiety Paroxetine HCl [Paxil] 30 mg PO DAILY #30 tablet Phenytoin [Dilantin] 300 mg PO HS #30 capsule Phenytoin [Dilantin] 100 mg PO DAILY #30 capsule Diet: Regular Activity Restrictions: No Restrictions Shower Restrictions: No Weight Bearing: Full Weight Additional Instructions or Follow Up instructions: You were admitted to observation for seizures. [facility] was called who recommended high dose dilantin while in the ED in an IV form, followed by home medication adjustments. You were not thought to have any further seizures, so it is safe for you to return home today. An echocardiogram was completed to rule out cardiac causes to your seizures, and preliminary results are shown to be normal. I will give you a small amount of lorazepam in the event that you experience further seizures. It is recommended that you follow up with your neurologist early this week and see your PCP within one week. - TIME SPENT Time Spent in Discharge (Minutes): 50
== END 2018-01-04 15:15 | disposition home or self-care (01) ==
LOC: EDUNIT# → ED 11:21 → MS2 19:56
PROVIDERS: ADMIT Internal Medicine; ATTEND Nurse Practitioner
DX: G40.909 Epilepsy, unspecified, not intractable, without status epilepticus (principal); F32.9 Major depressive disorder, single episode, unspecified; F43.9 Reaction to severe stress, unspecified
CPT/HCPCS: 36415; 80053; 80185; 81003; 81025; 83036; 83605; 83690; 83735; 84100; 84443; 85025; 93306; 96361; 96374; 96375; 96376; 99284; A9270; G0378; J2060; 80164; 81001; 87086; 99285

== ENCOUNTER 2018-10-11 11:22 | Outpatient (CLI) | payer OTHER | END 2018-10-11 11:23 | disposition critical access hospital (66) | LOC: EMS 11:22 | PROVIDERS: ATTEND Surgery | DX: R56.9 Unspecified convulsions (principal) | CPT/HCPCS: A0425; A0429 ==

== ENCOUNTER 2018-10-11 11:56 | Emergency (ER) | payer OTHER ==
[2018-10-11] MEDS ORDERED: LORazepam 2 MG/ML VIAL IVP STA (12:03)
[2018-10-11] MEDS ORDERED: LORazepam 2 MG/ML VIAL ONE (12:07)
--- NOTE | 2018-10-11 12:14 | ED Physician Documentation ---
PD HPI SEIZURE - Stated complaint Stated Complaint: SEIZURE - History obtained from History obtained from: Family (dad), EMS - History of Present Illness Timing - onset: Today (This is a 23-year-old woman with history of seizure disorder diagnosed last year. She is maintained on Lamictal and Dilantin. Her usual seizure frequency is about once a month. Per the father no clear causative lesion was seen on cranial imaging. She is followed by a neurologist in the [facility], Dr. nieto. She has had 5 seizures today without clear cause. She is not out of her routine. She took her Dilantin yesterday but did not take it today because of the seizures. She has not completely come back to normal between the seizures, but was close to normal just prior to arrival. On my evaluation as they rolled her into the emergency department she is actively seizing in a tonic-clonic manner.) Review of Systems Unable to obtain: AMS PD PAST MEDICAL HISTORY - Past Medical History Cardiovascular: None Respiratory: None Neuro: Seizure disorder Endocrine/Autoimmune: None GI: None SKYDIVING INSTRUCTOR: None : None HEENT: Chronic vision loss Psych: Depression, Anxiety Musculoskeletal: Fatigue Derm: None - Past Surgical History Past Surgical History: Yes Ortho: Other /SKYDIVING INSTRUCTOR: Hysterectomy, Breast reduction, Breast implants Derm: Other - Present Medications Home Medications: Ambulatory Orders Medication Instructions Recorded Confirmed LORazepam [Lorazepam] 0.5 mg PO Q4H PRN #20 tablet 01/04/18 Paroxetine HCl [Paxil] 30 mg PO DAILY #30 tablet 01/04/18 Phenytoin [Dilantin] 100 mg PO DAILY #30 capsule 01/04/18 Phenytoin [Dilantin] 300 mg PO HS #30 capsule 01/04/18 - Allergies Allergies/Adverse Reactions: Allergies Allergy/AdvReac Type Severity Reaction Status Date / Time Penicillins Allergy Unknown Verified 01/03/18 11:27 - Social History Does the pt smoke?: No Smoking Status: Never smoker Does the pt drink ETOH?: No Does the pt have substance abuse?: No - Immunizations Immunizations are current?: Yes - POLST Patient has POLST: No POLST Status: Full Code PD ED PE NORMAL - Vitals Vital signs reviewed: Yes - General General: Other (Classic tonic-clonic seizure, there is no evidence of pseudoseizures/malingering etc.) - HEENT HEENT: Other (Dilated nonreactive pupils; Lipsmacking; Profuse bronchorrhea) - Neck Neck: Supple, no meningeal sign, No bony TTP - Cardiac Cardiac: RRR, No murmur - Respiratory Respiratory: No respiratory distress, Clear bilaterally - Abdomen Abdomen: Soft, Non tender - Back Back: No CVA TTP, No spinal TTP - Derm Derm: Normal color, Warm and dry - Neuro Eye Opening: None Motor: None Verbal: None GCS Score: 3 Results - Vitals Vitals: Vital Signs - 24 hr 10/11/18 10/11/18 10/11/18 11:57 13:00 13:21 Temperature 36.7 C Heart Rate 144 H 79 81 Respiratory 7 L 18 15 Rate Blood Pressure 134/99 H 101/88 H O2 Saturation 78 L 95 100 10/11/18 10/11/18 10/11/18 14:00 14:30 15:38 Temperature 36.6 C Heart Rate 90 92 99 Respiratory 16 18 17 Rate Blood Pressure 120/72 128/88 H 114/71 O2 Saturation 100 99 100 Oxygen O2 Source Room air - Labs Labs: Laboratory Tests 10/11/18 10/11/18 10/11/18 12:58 13:15 13:15 Sodium 136 Potassium 4.0 Chloride 104 Carbon Dioxide 23 Anion Gap 9.0 BUN 8 Creatinine 0.6 Estimated GFR (MDRD) 126 Glucose 134 H Calcium 8.7 Total Bilirubin 0.6 AST 24 ALT 25 Alkaline Phosphatase 128 H Total Creatine Kinase 142 Total Protein 7.3 Albumin 3.8 Globulin 3.5 Albumin/Globulin Ratio 1.1 Lipase 20 L Urine Color YELLOW Urine Clarity CLEAR Urine pH 7.0 Ur Specific [place] 1.015 Urine Protein TRACE Urine Glucose (UA) NEGATIVE Urine Ketones NEGATIVE Urine Occult Blood NEGATIVE Urine Nitrite NEGATIVE Urine Bilirubin NEGATIVE Urine Urobilinogen 0.2 (NORMAL) Ur Leukocyte Esterase NEGATIVE Ur Microscopic Review NOT INDICATED Urine Culture Comments NOT INDICATED Urine HCG, Qual NEGATIVE Urine Opiates Screen NEGATIVE Ur Oxycodone Screen NEGATIVE Urine Methadone Screen NEGATIVE Ur Propoxyphene Screen NEGATIVE Ur Barbiturates Screen POSITIVE H Phenytoin 4.9 Ur Tricyclics Screen NEGATIVE Ur Phencyclidine Scrn NEGATIVE Ur Amphetamine Screen NEGATIVE U Methamphetamines Scrn NEGATIVE U Benzodiazepines Scrn NEGATIVE Urine Cocaine Screen NEGATIVE U Cannabinoids Screen POSITIVE H PD MEDICAL DECISION MAKING - ED course ED course: 23-year-old woman with known seizure disorder maintained on Lamictal 100 mg twice daily and 400 mg of Dilantin at night presents with 5 seizures today. She is actively seizing on arrival and was administered Ativan resolution of seizure activity and slow return back to normal baseline mental status. Her D ilantin level was 4.9 today with therapeutically being between 10 and 20, IV load calculation was 350 mg and this was ordered. I spoke with Dr. Toscano on- call for her neurologist at [place] who felt it as long as she return to full normal mental status she could be safely discharged and she should call the office tomorrow for dose modifications etc. She did have a complete return to normal mental status and was ambulatory in the department without issue. Departure - Departure Disposition: 01 Home, Self Care Clinical Impression: Seizure, Recurrent seizures Condition: Good Record reviewed to determine appropriate education?: Yes Health Concerns: seizures, increasing Plan of Treatment: loaded with IV dilantin, discussed with neurology apron trimmer for Dr Bautista Care Goals: decreasing seizures Instructions: ED Seizure Recurrent Comments: Call your neurologist tomorrow. Let him know that your Dilantin level today was 4.9 and you were loaded with 350 mg IV. Continue your usual doses of seizure medications and return for new or worsening symptoms. Discharge Date/Time: 10/11/18 15:52
[2018-10-11 13:17] LABS: MUDS CUTOFF CONCENTRATIONS CUTOFF CONC BELOW:
[2018-10-11 13:18] LABS: ALBUMIN 3.8 g/dL (3.2-5.5); ALBUMIN/GLOBULIN RATIO 1.1 (1.0-2.2); BILIRUBIN,TOTAL 0.6 mg/dL (0.2-1.0); CALCIUM 8.7 mg/dL (8.5-10.3); CREATININE 0.6 mg/dL (0.4-1.0); PHENYTOIN (DILANTIN) 4.9 ug/mL; TOTAL PROTEIN 7.3 g/dL (6.7-8.2)
[2018-10-11 13:20] LABS: BILIRUBIN,URINE NEGATIVE (NEGATIVE); GLUCOSE, URINE (UA) NEGATIVE (NEGATIVE); KETONES,URINE (UA) NEGATIVE (NEGATIVE); LEUKOCYTE ESTERASE, URINE NEGATIVE (NEGATIVE); NITRITE,URINE NEGATIVE (NEGATIVE); OCCULT BLOOD,URINE NEGATIVE (NEGATIVE); PROTEIN,URINE TRACE mg/dL (NEGATIVE); UROBILINOGEN,URINE 0.2 (NORMAL) E.U./dL (NORMAL)
[2018-10-11 13:23] LABS: CLARITY,URINE CLEAR (CLEAR); HCG UR QUAL NEGATIVE
[2018-10-11] MEDS ORDERED: SODIUM CHLORIDE 0.9% IV STA (13:25)
[2018-10-11] MEDS ORDERED: PHENYTOIN IV STA (13:25)
[2018-10-11] MEDS ORDERED: SODIUM CHLORIDE 0.9% IV ONE (13:33)
[2018-10-11] MEDS ORDERED: PHENYTOIN IV ONE (13:33)
[2018-10-11 13:35] LABS: AMPHETAMINE SCREEN,URINE NEGATIVE (NEGATIVE); BENZODIAZEPINES SCREEN, URINE NEGATIVE (NEGATIVE); COCAINE SCREEN URINE NEGATIVE (NEGATIVE); METHADONE SCREEN, URINE NEGATIVE (NEGATIVE); METHAMPHETAMINES SCREEN, URINE NEGATIVE (NEGATIVE); OPIATE SCREEN, URINE NEGATIVE (NEGATIVE); OXYCODONE SCREEN, URINE NEGATIVE (NEGATIVE); PROPOXYPHENE SCREEN, URINE NEGATIVE (NEGATIVE); TRICYCLIC ANTIDEPRESSANT,URINE NEGATIVE (NEGATIVE)
[2018-10-11] MEDS ORDERED: ONDANSETRON 4 MG/2 ML VIAL IVP STA (13:50)
[2018-10-11] MEDS ORDERED: ONDANSETRON 4 MG/2 ML VIAL ONE (14:00)
[2018-10-11] MEDS ORDERED: SODIUM CHLORIDE 0.9% 1,000 ML IV ONE (14:27)
[2018-10-11 15:42] VITALS: BP 114/71
== END 2018-10-11 15:52 | disposition home or self-care (01) ==
LOC: EDUNIT# → ED 11:56
DX: G40.909 Epilepsy, unspecified, not intractable, without status epilepticus (principal)
CPT/HCPCS: 36415; 80053; 80185; 81003; 81025; 82550; 83690; 96365; 96375; 99284; 99285; J2060; 80306; 81001; 85025; 87086

== ENCOUNTER 2018-11-11 21:00 | Outpatient (CLI) | payer OTHER | END 2018-11-11 21:01 | disposition critical access hospital (66) | LOC: EMS 21:00 | PROVIDERS: ATTEND Surgery | DX: R56.9 Unspecified convulsions (principal) | CPT/HCPCS: A0425; A0429 ==

== ENCOUNTER 2018-11-11 21:23 | Emergency (ER) | payer OTHER ==
[2018-11-11] MEDS ORDERED: LORazepam 2 MG/ML VIAL IVP STA (21:36)
--- NOTE | 2018-11-11 21:39 | ED Physician Documentation ---
PD HPI SEIZURE - Stated complaint Stated Complaint: SZ - Chief complaint Chief Complaint: Neuro - History obtained from History obtained from: Patient, Family (23-year-old woman with history of seizure disorder had 2 seizures today. I saw her about a month ago for seizures. Since then her Dilantin level has been increased to 400 mg 1 night and 500 mg every other night. She is currently taking Lamictal, 125 mg in the morning and 100 mg at night as well. She had a level done per the mom about 5 days ago of her Dilantin it was 6.5, no changes were made to her dosing. Today she is had 2 back to back seizures and on arrival is pretty much back to normal without specific complaints or injuries.) Review of Systems Ten Systems: 10 systems reviewed and negative Constitutional: denies: Fever, Chills, Fatigue Cardiac: denies: Chest pain / pressure, Palpitations Respiratory: denies: Dyspnea, Cough PD PAST MEDICAL HISTORY - Past Medical History Cardiovascular: None Respiratory: None Neuro: Seizure disorder Endocrine/Autoimmune: None GI: None PRACTICE BILLING ASSOCIATE: None : None HEENT: Chronic vision loss Psych: Depression, Anxiety Musculoskeletal: Fatigue Derm: None - Past Surgical History Past Surgical History: Yes Ortho: Other /PRACTICE BILLING ASSOCIATE: Hysterectomy, Breast reduction, Breast implants Derm: Other - Present Medications Home Medications: Ambulatory Orders Medication Instructions Recorded Confirmed Paroxetine HCl [Paxil] 30 mg PO DAILY #30 tablet 01/04/18 11/11/18 Phenytoin [Dilantin] 400 mg PO DAILY 11/11/18 11/11/18 Phenytoin [Dilantin] 500 mg PO HS 11/11/18 11/11/18 lamoTRIgine [LaMICtal] 225 mg PO DAILY 11/11/18 11/11/18 - Allergies Allergies/Adverse Reactions: Allergies Allergy/AdvReac Type Severity Reaction Status Date / Time Penicillins Allergy Unknown Verified 01/03/18 11:27 - Social History Does the pt smoke?: No Smoking Status: Never smoker Does the pt drink ETOH?: No Does the pt have substance abuse?: No - Immunizations Immunizations are current?: Yes - POLST Patient has POLST: No POLST Status: Full Code PD ED PE NORMAL - Vitals Vital signs reviewed: Yes - General General: Alert and oriented X 3, No acute distress - HEENT HEENT: PERRL, EOMI, Pharynx benign - Neck Neck: Supple, no meningeal sign, No bony TTP - Cardiac Cardiac: RRR, No murmur - Respiratory Respiratory: No respiratory distress, Clear bilaterally - Abdomen Abdomen: Non tender - Neuro Neuro: Alert and oriented X 3, cardiovascular technician 2-12 intact Eye Opening: Spontaneous Motor: Obeys Commands Verbal: Oriented GCS Score: 15 - Psych Psych: Normal mood, Normal affect Results - Vitals Vitals: Vital Signs - 24 hr 11/11/18 11/11/18 11/11/18 21:26 21:50 23:28 Temperature 36.3 C L Heart Rate 84 88 93 Respiratory 16 14 Rate Blood Pressure 121/79 121/75 131/85 H O2 Saturation 100 97 99 Oxygen O2 Source Room air - Labs Labs: Laboratory Tests 11/11/18 11/11/18 11/11/18 21:48 22:13 22:13 Sodium 141 Potassium 3.7 Chloride 106 Carbon Dioxide 24 Anion Gap 11.0 BUN 14 Creatinine 0.6 Estimated GFR (MDRD) 126 Glucose 98 Calcium 9.5 Urine Color YELLOW Urine Clarity CLEAR Urine pH 6.0 Ur Specific [employer] >=1.030 H Urine Protein NEGATIVE Urine Glucose (UA) NEGATIVE Urine Ketones NEGATIVE Urine Occult Blood NEGATIVE Urine Nitrite NEGATIVE Urine Bilirubin NEGATIVE Urine Urobilinogen 0.2 (NORMAL) Ur Leukocyte Esterase NEGATIVE Ur Microscopic Review NOT INDICATED Urine Culture Comments NOT INDICATED Urine HCG, Qual NEGATIVE Urine Opiates Screen NEGATIVE Ur Oxycodone Screen NEGATIVE Urine Methadone Screen NEGATIVE Ur Propoxyphene Screen NEGATIVE Ur Barbiturates Screen POSITIVE H Phenytoin 7.8 Ur Tricyclics Screen NEGATIVE Ur Phencyclidine Scrn NEGATIVE Ur Amphetamine Screen NEGATIVE U Methamphetamines Scrn NEGATIVE U Benzodiazepines Scrn NEGATIVE Urine Cocaine Screen NEGATIVE U Cannabinoids Screen POSITIVE H PD MEDICAL DECISION MAKING - ED course ED course: 23-year-old woman with 2 seizures today. She is a known history of seizures and is elliptic's for same. Her Dilantin level today is 7.8 and using a dosing calculator she was administered 200 mg p.o. Continued regular dosing of her antiepileptics was advised and to call her tomorrow. No seizing in the emergency department. Subseuqent to that she did have 1 GTC sz in the Ed with full reocvery. Departure - Departure Disposition: 01 Home, Self Care Clinical Impression: Seizure, Recurrent seizures Condition: Good Record reviewed to determine appropriate education?: Yes Instructions: ED Seizure Recurrent Comments: Continue current dosing of your antiepileptics and call your neurologist tomorrow letting him know that your Dilantin level today was 7.8 to discuss if he wanted to change any of your doses. Discharge Date/Time: 11/12/18 00:11
[2018-11-11 22:14] LABS: CALCIUM 9.5 mg/dL (8.5-10.3); CREATININE 0.6 mg/dL (0.4-1.0); PHENYTOIN (DILANTIN) 7.8 ug/mL
[2018-11-11 22:17] LABS: MUDS CUTOFF CONCENTRATIONS CUTOFF CONC BELOW:
[2018-11-11] MEDS ORDERED: PHENYTOIN ER 100 MG CAPSULE PO STA (22:18)
[2018-11-11 22:20] LABS: BILIRUBIN,URINE NEGATIVE (NEGATIVE); GLUCOSE, URINE (UA) NEGATIVE (NEGATIVE); KETONES,URINE (UA) NEGATIVE (NEGATIVE); LEUKOCYTE ESTERASE, URINE NEGATIVE (NEGATIVE); NITRITE,URINE NEGATIVE (NEGATIVE); OCCULT BLOOD,URINE NEGATIVE (NEGATIVE); PROTEIN,URINE NEGATIVE (NEGATIVE); UROBILINOGEN,URINE 0.2 (NORMAL) E.U./dL (NORMAL)
[2018-11-11 22:22] LABS: CLARITY,URINE CLEAR (CLEAR); HCG UR QUAL NEGATIVE
[2018-11-11 22:31] LABS: AMPHETAMINE SCREEN,URINE NEGATIVE (NEGATIVE); BENZODIAZEPINES SCREEN, URINE NEGATIVE (NEGATIVE); COCAINE SCREEN URINE NEGATIVE (NEGATIVE); METHADONE SCREEN, URINE NEGATIVE (NEGATIVE); METHAMPHETAMINES SCREEN, URINE NEGATIVE (NEGATIVE); OPIATE SCREEN, URINE NEGATIVE (NEGATIVE); OXYCODONE SCREEN, URINE NEGATIVE (NEGATIVE); PROPOXYPHENE SCREEN, URINE NEGATIVE (NEGATIVE); TRICYCLIC ANTIDEPRESSANT,URINE NEGATIVE (NEGATIVE)
[2018-11-11 23:34] VITALS: BP 131/85
== END 2018-11-12 00:11 | disposition home or self-care (01) ==
LOC: EDUNIT# → ED 21:23
DX: G40.909 Epilepsy, unspecified, not intractable, without status epilepticus (principal)
CPT/HCPCS: 36415; 80048; 80185; 81003; 81025; 96374; 99283; 99284; A9270; J2060; 80306; 81001; 87086

== ENCOUNTER 2019-01-06 13:36 | Outpatient (CLI) | payer OTHER | END 2019-01-06 13:37 | disposition critical access hospital (66) | LOC: EMS 13:36 | PROVIDERS: ATTEND Surgery | DX: R56.9 Unspecified convulsions (principal) | CPT/HCPCS: A0425; A0427 ==

== ENCOUNTER 2019-01-06 14:15 | Emergency (ER) | payer OTHER ==
[2019-01-06 14:22] VITALS: BP 108/68
--- NOTE | 2019-01-06 14:24 | ED Physician Documentation ---
PD HPI SEIZURE - Stated complaint Stated Complaint: SEIZURE - Chief complaint Chief Complaint: Neuro - History obtained from History obtained from: Patient, Family, EMS - History of Present Illness Timing - onset: Today (23-year-old woman with chronic recurrent seizures. Since her last visit here her antiepileptics have been increased a bit. Currently taking Lamictal 150 mg once a day and Dilantin 500 mg once a day. Last known seizure was November 15. She had a tonic-clonic seizure today without injury and she is now back to normal. She says she slept well last night. Denies alcohol or drug use except for occasional marijuana.) Review of Systems Constitutional: denies: Fever, Chills GI: denies: Abdominal Pain, Nausea, Vomiting : reports: Reviewed and negative PD PAST MEDICAL HISTORY - Past Medical History Cardiovascular: None Respiratory: None Neuro: Seizure disorder Endocrine/Autoimmune: None GI: None NORMALIZER: None : None HEENT: Chronic vision loss Psych: Depression, Anxiety Musculoskeletal: Fatigue Derm: None - Past Surgical History Past Surgical History: Yes Ortho: Other /NORMALIZER: Hysterectomy, Breast reduction, Breast implants Derm: Other - Present Medications Home Medications: Ambulatory Orders Medication Instructions Recorded Confirmed Paroxetine HCl [Paxil] 30 mg PO DAILY #30 tablet 01/04/18 11/11/18 Phenytoin [Dilantin] 400 mg PO DAILY 11/11/18 11/11/18 Phenytoin [Dilantin] 500 mg PO HS 11/11/18 11/11/18 lamoTRIgine [LaMICtal] 225 mg PO DAILY 11/11/18 11/11/18 - Allergies Allergies/Adverse Reactions: Allergies Allergy/AdvReac Type Severity Reaction Status Date / Time Penicillins Allergy Unknown Verified 01/06/19 14:22 - Social History Does the pt smoke?: No Smoking Status: Never smoker Does the pt drink ETOH?: No Does the pt have substance abuse?: No - Immunizations Immunizations are current?: Yes - POLST Patient has POLST: No POLST Status: Full Code PD ED PE NORMAL - Vitals Vital signs reviewed: Yes - General General: Alert and oriented X 3, No acute distress - HEENT HEENT: PERRL, EOMI, Pharynx benign - Neck Neck: Supple, no meningeal sign, No bony TTP - Cardiac Cardiac: RRR, No murmur - Respiratory Respiratory: No respiratory distress, Clear bilaterally - Abdomen Abdomen: Non tender - Neuro Neuro: Alert and oriented X 3, frame assembler 2-12 intact, No motor deficit, No sensory deficit, Normal speech - Psych Psych: Normal mood, Normal affect Results - Vitals Vitals: Vital Signs - 24 hr 01/06/19 14:18 Temperature 36.4 C L Heart Rate 83 Respiratory 14 Rate Blood Pressure 108/68 O2 Saturation 99 Oxygen O2 Source Room air - Labs Labs: Laboratory Tests 01/06/19 14:32 Sodium 138 Potassium 4.1 Chloride 104 Carbon Dioxide 25 Anion Gap 9.0 BUN 8 Creatinine 0.6 Estimated GFR (MDRD) 126 Glucose 97 Calcium 8.9 Total Bilirubin 0.4 AST 20 ALT 16 Alkaline Phosphatase 127 H Total Protein 7.4 Albumin 4.0 Globulin 3.4 Albumin/Globulin Ratio 1.2 Lipase 26 Phenytoin 13.8 PD MEDICAL DECISION MAKING - ED course ED course: At approximately 2:30 PM I was called into the room, she was having classic tonic-clonic seizure. She was administered 2 mg of Ativan IV. She recovered fairly quickly. 23-year-old woman with seizure today and another one in the department. Recently Lamictal was increased by her neurologist and her Dilantin level today is normal/therapeutic. I spoke with the neurologist on-call for his who recommended no dose changes now and simply does follow-up with her neurologist. Departure - Departure Disposition: 01 Home, Self Care Clinical Impression: Seizure, Recurrent seizures Condition: Good Record reviewed to determine appropriate education?: Yes Comments: Email your neurologist tomorrow, let him know that your phenytoin level today was 13 which is therapeutic. Return for new or worsening symptoms. Continue to not drive.
[2019-01-06] MEDS ORDERED: LORazepam 2 MG/ML VIAL IVP STA (14:42)
[2019-01-06] MEDS ORDERED: LORazepam 2 MG/ML VIAL ONE (14:49)
[2019-01-06 14:55] LABS: ALBUMIN/GLOBULIN RATIO 1.2 (1.0-2.2); BILIRUBIN,TOTAL 0.4 mg/dL (0.2-1.0); CALCIUM 8.9 mg/dL (8.5-10.3); CREATININE 0.6 mg/dL (0.4-1.0); PHENYTOIN (DILANTIN) 13.8 ug/mL; TOTAL PROTEIN 7.4 g/dL (6.7-8.2)
[2019-01-06] MEDS ORDERED: ONDANSETRON 4 MG/2 ML VIAL IVP STA (16:55)
== END 2019-01-06 17:40 | disposition home or self-care (01) ==
LOC: EDUNIT# → ED 14:15
DX: G40.909 Epilepsy, unspecified, not intractable, without status epilepticus (principal)
CPT/HCPCS: 36415; 80053; 80185; 83690; 96374; 96375; 99283; J2060

== ENCOUNTER 2019-02-10 21:21 | Outpatient (CLI) | payer OTHER | END 2019-02-10 21:22 | disposition EMS.NT | LOC: EMS 21:21 | PROVIDERS: ATTEND Surgery | DX: R56.9 Unspecified convulsions (principal) ==

== ENCOUNTER 2019-02-10 22:14 | Emergency (ER) | payer OTHER ==
[2019-02-11] MEDS ORDERED: PHENYTOIN 100 MG/2 ML VIAL IVP STA ×2 (00:03→01:32)
[2019-02-11] MEDS ORDERED: LORazepam 2 MG/ML VIAL ONE ×2 (00:06→00:08)
[2019-02-11] MEDS ORDERED: LORazepam 2 MG/ML VIAL IM STA (00:09)
[2019-02-11] MEDS ORDERED: SODIUM CHLORIDE 0.9% 1,000 ML IV ONE (00:09)
[2019-02-11 00:51] LABS: BASOPHILS % (AUTO) 0.4 %; EOSINOPHILS % (AUTO) 0.4 %; HGB - HEMOGLOBIN 10.4 g/dL (12.0-16.0); LYMPHOCYTES # (AUTO) 1.4 10^3/uL (1.5-3.5); LYMPHOCYTES % (AUTO) 19.9 %; MEAN CORPUSCULAR HEMOGLOBIN 27.9 pg (27.0-31.0); MEAN CORPUSCULAR HGB CONC 31.8 g/dL (32.0-36.0); MEAN CORPUSCULAR VOLUME 87.7 fL (81.0-99.0); MEAN PLATELET VOLUME 10.8 fL (7.9-10.8); MONOCYTES # (AUTO) 0.6 10^3/uL (0.0-1.0); MONOCYTES % (AUTO) 8.4 %; NEUTROPHILS # (AUTO) 4.8 10^3/uL (1.5-6.6); NEUTROPHILS % (AUTO) 70.5 %; PLT - PLATELET COUNT 181 10^3/uL (130-450); RED BLOOD COUNT 3.73 10^6/uL (4.20-5.40); RED CELL DISTRIBUTION WIDTH 13.2 % (12.0-15.0); WHITE BLOOD COUNT 6.8 x10^3/uL (4.8-10.8)
[2019-02-11 00:59] LABS: ALBUMIN 3.6 g/dL (3.2-5.5); ALBUMIN/GLOBULIN RATIO 1.2 (1.0-2.2); ALKALINE PHOSPHATASE 109 IU/L (42-121); ALT ALANINE AMINOTRANSFERASE 13 IU/L (10-60); AST ASPARTATE AMINOTRANSFERASE 22 IU/L (10-42); BILIRUBIN,TOTAL < 0.2 mg/dL (0.2-1.0); BUN - BLOOD UREA NITROGEN 6 mg/dL (6-20); CALCIUM 8.4 mg/dL (8.5-10.3); CARBON DIOXIDE - CO2 22 mmol/L (21-32); CHLORIDE 107 mmol/L (101-111); CREATININE 0.7 mg/dL (0.4-1.0); GFR - MDRD 106 (>89); GLUCOSE 118 mg/dL (70-100); LIPASE 25 U/L (22-51); PHENYTOIN (DILANTIN) 10.2 ug/mL; SODIUM 138 mmol/L (135-145); TOTAL PROTEIN 6.5 g/dL (6.7-8.2)
[2019-02-11 01:34] LABS: BILIRUBIN,URINE NEGATIVE (NEGATIVE); GLUCOSE, URINE (UA) NEGATIVE (NEGATIVE); KETONES,URINE (UA) 15 mg/dL (NEGATIVE); LEUKOCYTE ESTERASE, URINE NEGATIVE (NEGATIVE); NITRITE,URINE NEGATIVE (NEGATIVE); OCCULT BLOOD,URINE NEGATIVE (NEGATIVE); PROTEIN,URINE NEGATIVE (NEGATIVE); UROBILINOGEN,URINE 0.2 (NORMAL) E.U./dL (NORMAL)
[2019-02-11 01:37] LABS: CLARITY,URINE CLEAR (CLEAR); HCG UR QUAL NEGATIVE
[2019-02-11 02:12] VITALS: BP 125/94
--- NOTE | 2019-02-11 02:28 | ED Physician Documentation ---
PD HPI SEIZURE - Stated complaint Stated Complaint: SZ - Chief complaint Chief Complaint: Neuro - History obtained from History obtained from: Patient, Family - History of Present Illness Timing - onset: Today Witnessed: Witnessed Number of seizures: Multiple, Lasted minutes Description of seizure activity: Generalized Injury during seizure: None Associated symptoms: Headache History of seizures: Known seizure disorder Contributing factors: No: Off meds, Out of meds, Changed meds, Low blood sugar, Head injury, Substance abuse, EtOH withdrawal, Benzo withdrawal, Overdose, Sleep deprivation Similar symptoms before: Diagnosis (seizure with status) Recently seen: Emergency Dept (one month ago with seizure) - Additional information Additional information: 23-year-old female with recurrent seizures had what seemed like a panic attack and developed a seizure and she states that this is why this usually is happened. She was at work when this occurred her boss was there to assist and helped her to the ground. She denies any sleep deprivation or current illness. She denies any withdrawal from alcohol or use of illicit drugs. She denies any recent illness of any kind. She is taking Lamictal 175 mg twice daily and Dilantin 500 mg at night. Review of Systems Constitutional: denies: Fever Eyes: denies: Decreased vision Ears: denies: Ear pain Nose: denies: Rhinorrhea / runny nose, Congestion Throat: denies: Sore throat Cardiac: denies: Chest pain / pressure Respiratory: denies: Dyspnea, Cough GI: denies: Nausea, Vomiting, Constipation, Diarrhea : denies: Dysuria, Frequency Musculoskeletal: denies: Neck pain, Back pain Neurologic: reports: Seizure. 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 : None HEENT: None Psych: Depression, Anxiety Musculoskeletal: None Derm: None - Past Surgical History Past Surgical History: Yes Ortho: Other /WEB SITE ADMINISTRATOR: Hysterectomy, Breast reduction, Breast implants Derm: Other - Present Medications Home Medications: Ambulatory Orders Medication Instructions Recorded Confirmed Paroxetine HCl [Paxil] 30 mg PO DAILY #30 tablet 01/04/18 02/10/19 Phenytoin [Dilantin] 500 mg PO HS 11/11/18 02/10/19 lamoTRIgine [LaMICtal] 175 mg PO DAILY 11/11/18 02/10/19 - Allergies Allergies/Adverse Reactions: Allergies Allergy/AdvReac Type Severity Reaction Status Date / Time Penicillins Allergy Unknown Verified 02/10/19 22:25 - Social History Does the pt smoke?: No Smoking Status: Never smoker Does the pt drink ETOH?: No Does the pt have substance abuse?: No - Immunizations Immunizations are current?: Yes - POLST Patient has POLST: No POLST Status: Full Code PD ED PE NORMAL - Vitals Vital signs reviewed: Yes (Normal) - General General: Alert and oriented X 3, No acute distress, Well developed/nourished - HEENT HEENT: Atraumatic, PERRL, EOMI, Ears normal, Moist mucous membranes, Pharynx benign, Dentition benign - Neck Neck: Supple, no meningeal sign, No bony TTP - Cardiac Cardiac: RRR, No murmur - Respiratory Respiratory: No respiratory distress, Clear bilaterally - Abdomen Abdomen: Soft, Non tender - Back Back: No CVA TTP, No spinal TTP - Derm Derm: Normal color, Warm and dry, No rash - Extremities Extremities: No deformity, No edema, No calf tenderness / cord - Neuro Neuro: Alert and oriented X 3, motorcycle service technician 2-12 intact, No motor deficit, No sensory deficit, Normal speech Eye Opening: Spontaneous Motor: Obeys Commands Verbal: Oriented GCS Score: 15 - Psych Psych: Normal mood, Normal affect Results - Vitals Vitals: Vital Signs - 24 hr 02/10/19 02/10/19 02/11/19 22:23 23:17 00:23 Temperature 37.0 C Heart Rate 71 66 122 H Respiratory 16 20 12 Rate Blood Pressure 121/73 117/77 85/51 L O2 Saturation 99 98 97 02/11/19 02/11/19 02/11/19 00:42 00:50 00:56 Temperature Heart Rate 102 H 96 105 H Respiratory 14 24 24 Rate Blood Pressure 105/76 125/84 H 132/88 H O2 Saturation 92 94 92 02/11/19 02/11/19 02/11/19 00:58 01:14 01:28 Temperature Heart Rate 106 H 99 91 Respiratory 21 17 24 Rate Blood Pressure 121/85 H 130/93 H 118/78 O2 Saturation 96 95 97 02/11/19 02/11/19 02/11/19 01:51 02:00 02:11 Temperature Heart Rate 92 88 91 Respiratory 24 21 16 Rate Blood Pressure 106/89 H 116/86 H 125/94 H O2 Saturation 97 96 97 Oxygen O2 Source Room air - Labs Labs: Laboratory Tests 02/10/19 02/11/19 02/11/19 23:06 00:35 00:35 WBC 6.8 RBC 3.73 L Hgb 10.4 L Hct 32.7 L MCV 87.7 MCH 27.9 MCHC 31.8 L RDW 13.2 Plt Count 181 MPV 10.8 Neut # (Auto) 4.8 Lymph # (Auto) 1.4 L [place] # (Auto) 0.6 Eos # (Auto) 0.0 Baso # (Auto) 0.0 Absolute Nucleated RBC 0.00 Nucleated RBC % 0.0 Sodium 138 Potassium 3.6 Chloride 107 Carbon Dioxide 22 Anion Gap 9.0 BUN 6 Creatinine 0.7 Estimated GFR (MDRD) 106 Glucose 118 H POC Whole Bld Glucose 78 Calcium 8.4 L Total Bilirubin < 0.2 L AST 22 ALT 13 Alkaline Phosphatase 109 Total Protein 6.5 L Albumin 3.6 Globulin 2.9 Albumin/Globulin Ratio 1.2 Lipase 25 Urine Color Urine Clarity Urine pH Ur Specific [place] Urine Protein Urine Glucose (UA) Urine Ketones Urine Occult Blood Urine Nitrite Urine Bilirubin Urine Urobilinogen Ur Leukocyte Esterase Ur Microscopic Review Urine Culture Comments Urine HCG, Qual Phenytoin 10.2 Ethyl Alcohol < 5.0 02/11/19 01:18 WBC RBC Hgb Hct MCV MCH MCHC RDW Plt Count MPV Neut # (Auto) Lymph # (Auto) [place] # (Auto) Eos # (Auto) Baso # (Auto) Absolute Nucleated RBC Nucleated RBC % Sodium Potassium Chloride Carbon Dioxide Anion Gap BUN Creatinine Estimated GFR (MDRD) Glucose POC Whole Bld Glucose Calcium Total Bilirubin AST ALT Alkaline Phosphatase Total Protein Albumin Globulin Albumin/Globulin Ratio Lipase Urine Color YELLOW Urine Clarity CLEAR Urine pH 7.0 Ur Specific [place] 1.015 Urine Protein NEGATIVE Urine Glucose (UA) NEGATIVE Urine Ketones 15 H Urine Occult Blood NEGATIVE Urine Nitrite NEGATIVE Urine Bilirubin NEGATIVE Urine Urobilinogen 0.2 (NORMAL) Ur Leukocyte Esterase NEGATIVE Ur Microscopic Review NOT INDICATED Urine Culture Comments NOT INDICATED Urine HCG, Qual NEGATIVE Phenytoin Ethyl Alcohol PD MEDICAL DECISION MAKING - ED course Complexity details: reviewed old records, reviewed results, re-evaluated patient, considered differential, d/w patient, d/w family ED course: 23-year-old female with a recurrent seizure disorder has had seizure this evening and we were able to get blood work back on the patient demonstrating a Dilantin level of 10. She is administered an additional 300 mg of Dilantin as well as a milligram of Ativan IM for seizure which she had in the emergency department characterized by a prodrome of tachycardia and tachypnea and characterized by generalized tonic-clonic movement lipsmacking and eye blinking. She recovered from this seizure and was subsequently administered another milligram of Ativan and the remainder of the Dilantin when she developed a seizure prodrome. Following administration of Dilantin the patient felt well and wanted to go home. Departure - Departure Disposition: 01 Home, Self Care Clinical Impression: Recurrent seizures Condition: Stable Instructions: ED Seizure Recurrent Follow-Up: Kwan Hammond MD [Primary Care Provider] - Comments: Call your neurologist tomorrow with an update and let him know that your Dilantin level was 10. We administered an additional 300 mg of Dilantin intravenously.
[2019-02-11] MEDS ORDERED: LORazepam 2 MG/ML VIAL IVP STA (02:49)
== END 2019-02-11 02:45 | disposition home or self-care (01) ==
LOC: ED 22:14
DX: G40.909 Epilepsy, unspecified, not intractable, without status epilepticus (principal)
CPT/HCPCS: 36415; 80053; 80185; 80320; 81003; 81025; 83690; 85025; 96361; 96372; 96374; 96375; 96376; 99284; J2060; 81001; 87086

== ENCOUNTER 2019-09-22 07:48 | Emergency (ER) | payer OTHER ==
[2019-09-22] MEDS ORDERED: LORazepam 2 MG/ML VIAL IVP STA (08:29)
[2019-09-22] MEDS ORDERED: SODIUM CHLORIDE 0.9% 1,000 ML IV STA (08:29)
[2019-09-22] MEDS ORDERED: ONDANSETRON 4 MG/2 ML VIAL IVP STA (08:29)
[2019-09-22] MEDS ORDERED: KETOROLAC 30 MG/ML VIAL IVP STA (08:29)
--- NOTE | 2019-09-22 08:33 | ED Physician Documentation ---
PD HPI SEIZURE - Stated complaint Stated Complaint: SZ - Chief complaint Chief Complaint: Neuro - History obtained from History obtained from: Patient, Family (mom) - History of Present Illness Timing - onset: How many days ago (pt with average seziure interval of 6 wks. Has had few days occasionally of several recurrent seizures. Is having that pattern of several seizures in the past 2 days.) Witnessed: Witnessed Number of seizures: Multiple, Recovered between seizure Description of seizure activity: Generalized Injury during seizure: None Associated symptoms: None. 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 : None HEENT: None Psych: Depression, Anxiety Musculoskeletal: None Derm: None - Past Surgical History Past Surgical History: Yes Ortho: Other /STENCIL SPRAYER: Hysterectomy, Breast reduction, Breast implants Derm: Other - Present Medications Home Medications: Ambulatory Orders Medication Instructions Recorded Confirmed PARoxetine HCl [Paxil] 30 mg PO DAILY #30 tablet 01/04/18 02/10/19 Phenytoin [Dilantin] 500 mg PO HS 11/11/18 02/10/19 lamoTRIgine [LaMICtal] 175 mg PO DAILY 11/11/18 02/10/19 diazePAM [Diazepam] 5 mg PO BID PRN #10 tablet 09/22/19 - Allergies Allergies/Adverse Reactions: Allergies Allergy/AdvReac Type Severity Reaction Status Date / Time Penicillins Allergy Unknown Verified 09/22/19 08:05 - Social History Does the pt smoke?: No Smoking Status: Never smoker Does the pt drink ETOH?: No Does the pt have substance abuse?: No - Immunizations Immunizations are current?: Yes - POLST Patient has POLST: No POLST Status: Full Code PD ED PE NORMAL - Vitals Vital signs reviewed: Yes - General General: Alert and oriented X 3, No acute distress, Well developed/nourished - HEENT HEENT: Moist mucous membranes - Cardiac Cardiac: RRR, No murmur - Respiratory Respiratory: Clear bilaterally - Abdomen Abdomen: Soft, Non tender - Back Back: No CVA TTP - Derm Derm: Normal color, Warm and dry - Extremities Extremities: No tenderness to palpate, Normal ROM s pain, No edema, No calf tenderness / cord - Neuro Neuro: Alert and oriented X 3, No motor deficit, Normal speech Eye Opening: Spontaneous Motor: Obeys Commands Verbal: Oriented GCS Score: 15 Results - Vitals Vitals: Vital Signs - 24 hr 09/22/19 09/22/19 09/22/19 08:06 08:09 08:52 Temperature 36.7 C 36.7 C Heart Rate 72 66 77 Respiratory 17 17 14 Rate Blood Pressure 128/79 124/78 110/70 O2 Saturation 100 98 99 09/22/19 09/22/19 09/22/19 09:09 09:30 10:00 Temperature Heart Rate 59 L 77 62 Respiratory 22 16 18 Rate Blood Pressure 121/91 H 123/82 H 118/76 O2 Saturation 100 99 99 09/22/19 09/22/19 09/22/19 10:30 11:00 11:30 Temperature Heart Rate 65 81 70 Respiratory 22 21 27 H Rate Blood Pressure 132/73 H 118/70 109/68 O2 Saturation 99 98 100 Oxygen O2 Source Room air - Labs Labs: Laboratory Tests 09/22/19 09/22/19 09/22/19 08:43 08:43 08:43 WBC 14.4 H RBC 4.30 Hgb 13.4 Hct 38.7 MCV 90.0 MCH 31.2 H MCHC 34.6 RDW 12.4 Plt Count 212 MPV 10.6 Neut # (Auto) 12.9 H Lymph # (Auto) 0.8 L [place] # (Auto) 0.6 Eos # (Auto) 0.0 Baso # (Auto) 0.0 Absolute Nucleated RBC 0.00 Nucleated RBC % 0.0 Sodium 137 Potassium 4.0 Chloride 100 L Carbon Dioxide 27 Anion Gap 10.0 BUN 10 Creatinine 0.6 Estimated GFR (MDRD) 125 Glucose 119 H Calcium 9.4 Magnesium 2.3 Total Bilirubin 0.8 AST 18 ALT 20 Alkaline Phosphatase 129 H Total Protein 8.2 Albumin 4.4 Globulin 3.8 Albumin/Globulin Ratio 1.2 Lipase 23 TSH 0.74 Urine Color Urine Clarity Urine pH Ur Specific [place] Urine Protein Urine Glucose (UA) Urine Ketones Urine Occult Blood Urine Nitrite Urine Bilirubin Urine Urobilinogen Ur Leukocyte Esterase Urine RBC Urine WBC Ur Squamous Epith Cells Urine Bacteria Ur Microscopic Review Urine Culture Comments Urine HCG, Qual Urine Opiates Screen Ur Oxycodone Screen Urine Methadone Screen Ur Propoxyphene Screen Ur Barbiturates Screen Phenytoin < 2.5 Ur Tricyclics Screen Ur Phencyclidine Scrn Ur Amphetamine Screen U Methamphetamines Scrn U Benzodiazepines Scrn Urine Cocaine Screen U Cannabinoids Screen 09/22/19 09/22/19 11:18 11:18 WBC RBC Hgb Hct MCV MCH MCHC RDW Plt Count MPV Neut # (Auto) Lymph # (Auto) Harris # (Auto) Eos # (Auto) Baso # (Auto) Absolute Nucleated RBC Nucleated RBC % Sodium Potassium Chloride Carbon Dioxide Anion Gap BUN Creatinine Estimated GFR (MDRD) Glucose Calcium Magnesium Total Bilirubin AST ALT Alkaline Phosphatase Total Protein Albumin Globulin Albumin/Globulin Ratio Lipase TSH Urine Color DARK YELLOW Urine Clarity SL. CLOUDY Urine pH 7.0 Ur Specific [place] 1.020 Urine Protein NEGATIVE Urine Glucose (UA) NEGATIVE Urine Ketones 40 H Urine Occult Blood SMALL H Urine Nitrite NEGATIVE Urine Bilirubin NEGATIVE Urine Urobilinogen 1 (NORMAL) Ur Leukocyte Esterase NEGATIVE Urine RBC 6-10 H Urine WBC 4-5 Ur Squamous Epith Cells MANY Squamous H Urine Bacteria Moderate H Ur Microscopic Review INDICATED Urine Culture Comments NOT INDICATED Urine HCG, Qual NEGATIVE Urine Opiates Screen NEGATIVE Ur Oxycodone Screen NEGATIVE Urine Methadone Screen NEGATIVE Ur Propoxyphene Screen NEGATIVE Ur Barbiturates Screen POSITIVE H Phenytoin Ur Tricyclics Screen NEGATIVE Ur Phencyclidine Scrn NEGATIVE Ur Amphetamine Screen NEGATIVE U Methamphetamines Scrn NEGATIVE U Benzodiazepines Scrn POSITIVE H Urine Cocaine Screen NEGATIVE U Cannabinoids Screen POSITIVE H PD MEDICAL DECISION MAKING - ED course Complexity details: reviewed results (normal labs. Utox showing cannibis. This could be changing seizure pattern. Otherwise no acute illness.), considered differential (history of seizures with new meds about month ago. tapering dilantin. Can check labs.), d/w patient Departure - Departure Disposition: 01 Home, Self Care Clinical Impression: Recurrent seizures Condition: Stable Record reviewed to determine appropriate education?: Yes Instructions: ED Seizure Recurrent Follow-Up: CAM EMERSON MD [Primary Care Provider] - Prescriptions: diazePAM [Diazepam] 5 mg PO BID PRN #10 tablet PRN Reason: Spasms Comments: Your test here are normal with just elevation of your white count on your blood count. However there is no obvious signs of infection on your urine or chest x- ray or exam. May have been just part of the adrenaline response of the seizures. Continue current seizure medications. You could potentially add on diazepam once or twice daily over the next few days to reduce the number of seizures overall and see if it tapers down to your normal within a day or 2. Stay well-hydrated. Use only prescribed medications or regular [id number] medicines. Other things can affect your seizure threshold potentially. This would include recreational substances such as marijuana. Call your neurologist's office if you continue with more seizures today or tomorrow for any advice on medication changes. Return to the ER if problems. Discharge Date/Time: 09/22/19 11:53
[2019-09-22 08:54] LABS: BASOPHILS % (AUTO) 0.3 %; HGB - HEMOGLOBIN 13.4 g/dL (12.0-16.0); LYMPHOCYTES # (AUTO) 0.8 10^3/uL (1.5-3.5); LYMPHOCYTES % (AUTO) 5.5 %; MEAN CORPUSCULAR HEMOGLOBIN 31.2 pg (27.0-31.0); MEAN CORPUSCULAR HGB CONC 34.6 g/dL (32.0-36.0); MEAN PLATELET VOLUME 10.6 fL (7.9-10.8); MONOCYTES # (AUTO) 0.6 10^3/uL (0.0-1.0); MONOCYTES % (AUTO) 4.4 %; NEUTROPHILS # (AUTO) 12.9 10^3/uL (1.5-6.6); NEUTROPHILS % (AUTO) 89.3 %; PLT - PLATELET COUNT 212 10^3/uL (130-450); RED CELL DISTRIBUTION WIDTH 12.4 % (12.0-15.0); WHITE BLOOD COUNT 14.4 x10^3/uL (4.8-10.8)
[2019-09-22 09:01] LABS: ALBUMIN 4.4 g/dL (3.2-5.5); ALBUMIN/GLOBULIN RATIO 1.2 (1.0-2.2); ALKALINE PHOSPHATASE 129 IU/L (42-121); ALT ALANINE AMINOTRANSFERASE 20 IU/L (10-60); AST ASPARTATE AMINOTRANSFERASE 18 IU/L (10-42); BILIRUBIN,TOTAL 0.8 mg/dL (0.2-1.0); BUN - BLOOD UREA NITROGEN 10 mg/dL (6-20); CALCIUM 9.4 mg/dL (8.5-10.3); CARBON DIOXIDE - CO2 27 mmol/L (21-32); CHLORIDE 100 mmol/L (101-111); CREATININE 0.6 mg/dL (0.4-1.0); GLUCOSE 119 mg/dL (70-100); LIPASE 23 U/L (22-51); MAGNESIUM 2.3 mg/dL (1.7-2.8); SODIUM 137 mmol/L (135-145); TOTAL PROTEIN 8.2 g/dL (6.7-8.2)
[2019-09-22 09:11] LABS: PHENYTOIN (DILANTIN) < 2.5 ug/mL
--- NOTE | 2019-09-22 09:53 | XRAY Report ---
Reason: congestion Procedure Date: 09/22/2019 Accession Number: [id number] / [id number] Procedure: XR - Chest 1 View X-Ray CPT Code: 57576 Final Report FULL RESULT: PROCEDURE: Chest 1 View X-Ray INDICATIONS: congestion TECHNIQUE: One view of the chest was acquired. COMPARISON: None FINDINGS: Surgical changes and devices: None. Lungs and pleura: No pleural effusions or pneumothorax. Lungs are clear. Mediastinum: Mediastinal contours appear normal. Heart size is normal. Bones and chest wall: No suspicious bony lesions. Overlying soft tissues appear unremarkable. IMPRESSION: No evidence acute pulmonary process. Reviewed by: Maxx Gallo MD on 09/22/2019 9:52 AM PDT Approved by: Maxx Gallo MD on 09/22/2019 9:52 AM PDT Station ID: [id number]
[2019-09-22 11:21] LABS: MUDS CUTOFF CONCENTRATIONS CUTOFF CONC BELOW:
[2019-09-22 11:25] LABS: GLUCOSE, URINE (UA) NEGATIVE (NEGATIVE); KETONES,URINE (UA) 40 mg/dL (NEGATIVE); LEUKOCYTE ESTERASE, URINE NEGATIVE (NEGATIVE); NITRITE,URINE NEGATIVE (NEGATIVE); OCCULT BLOOD,URINE SMALL (NEGATIVE); PROTEIN,URINE NEGATIVE (NEGATIVE); UROBILINOGEN,URINE 1 (NORMAL) E.U./dL (NORMAL)
[2019-09-22 11:26] LABS: BILIRUBIN,URINE NEGATIVE (NEGATIVE); CLARITY,URINE SL. CLOUDY (CLEAR); HCG UR QUAL NEGATIVE; ICTOTEST,URINE NEGATIVE
[2019-09-22 11:30] VITALS: BP 109/68
[2019-09-22 11:31] LABS: BACTERIA,URINE Moderate /HPF (None Seen); SQUAMOUS EPITHELIAL CELL,UR MANY Squamous (<= Few)
[2019-09-22 11:33] LABS: AMPHETAMINE SCREEN,URINE NEGATIVE (NEGATIVE); BENZODIAZEPINES SCREEN, URINE POSITIVE (NEGATIVE); COCAINE SCREEN URINE NEGATIVE (NEGATIVE); METHADONE SCREEN, URINE NEGATIVE (NEGATIVE); METHAMPHETAMINES SCREEN, URINE NEGATIVE (NEGATIVE); OPIATE SCREEN, URINE NEGATIVE (NEGATIVE); OXYCODONE SCREEN, URINE NEGATIVE (NEGATIVE); PROPOXYPHENE SCREEN, URINE NEGATIVE (NEGATIVE); TRICYCLIC ANTIDEPRESSANT,URINE NEGATIVE (NEGATIVE)
== END 2019-09-22 11:53 | disposition home or self-care (01) ==
LOC: ED 07:48
DX: G40.909 Epilepsy, unspecified, not intractable, without status epilepticus (principal); D72.829 Elevated white blood cell count, unspecified
CPT/HCPCS: 36415; 71045; 80185; 81001; 81025; 83690; 83735; 96361; 96374; 99284; J2060; 80053; 80306; 81003; 84443; 85025; 87086

== ENCOUNTER 2019-09-23 14:12 | Outpatient (CLI) | payer OTHER | END 2019-09-23 14:13 | disposition home or self-care (01) | LOC: LAB.S 14:12 | PROVIDERS: ATTEND Psychiatry & Neurology Neurology | DX: G40.909 Epilepsy, unspecified, not intractable, without status epilepticus (principal); Z79.899 Other long term (current) drug therapy | CPT/HCPCS: 36415; 80175; 80185; 80299; 81599 ==

== ENCOUNTER 2020-05-04 23:52 | Emergency (ER) | payer OTHER ==
[2020-05-05 01:07] LABS: BASOPHILS % (AUTO) 0.2 %; EOSINOPHILS % (AUTO) 0.4 %; HGB - HEMOGLOBIN 12.6 g/dL (12.0-16.0); LYMPHOCYTES # (AUTO) 1.4 10^3/uL (1.5-3.5); LYMPHOCYTES % (AUTO) 14.7 %; MEAN CORPUSCULAR HEMOGLOBIN 30.4 pg (27.0-31.0); MEAN CORPUSCULAR HGB CONC 33.2 g/dL (32.0-36.0); MEAN CORPUSCULAR VOLUME 91.8 fL (81.0-99.0); MEAN PLATELET VOLUME 10.2 fL (7.9-10.8); MONOCYTES # (AUTO) 0.7 10^3/uL (0.0-1.0); MONOCYTES % (AUTO) 6.9 %; NEUTROPHILS # (AUTO) 7.4 10^3/uL (1.5-6.6); NEUTROPHILS % (AUTO) 77.5 %; PLT - PLATELET COUNT 201 10^3/uL (130-450); RED BLOOD COUNT 4.14 10^6/uL (4.20-5.40); RED CELL DISTRIBUTION WIDTH 11.9 % (12.0-15.0); WHITE BLOOD COUNT 9.6 x10^3/uL (4.8-10.8)
[2020-05-05] MEDS ORDERED: LORazepam 2 MG/ML VIAL IM STA (01:12)
[2020-05-05 01:18] LABS: ALBUMIN 4.2 g/dL (3.2-5.5); ALBUMIN/GLOBULIN RATIO 1.2 (1.0-2.2); BILIRUBIN,TOTAL 0.5 mg/dL (0.2-1.0); CALCIUM 9.1 mg/dL (8.5-10.3); CREATININE 0.6 mg/dL (0.4-1.0); TOTAL PROTEIN 7.7 g/dL (6.7-8.2)
[2020-05-05 01:41] LABS: MUDS CUTOFF CONCENTRATIONS CUTOFF CONC BELOW:
[2020-05-05 01:45] LABS: BILIRUBIN,URINE NEGATIVE (NEGATIVE); GLUCOSE, URINE (UA) NEGATIVE (NEGATIVE); KETONES,URINE (UA) NEGATIVE (NEGATIVE); LEUKOCYTE ESTERASE, URINE SMALL (NEGATIVE); NITRITE,URINE NEGATIVE (NEGATIVE); OCCULT BLOOD,URINE NEGATIVE (NEGATIVE); PH,URINE 6.5 PH (5.0-7.5); PROTEIN,URINE NEGATIVE (NEGATIVE); UROBILINOGEN,URINE 0.2 (NORMAL) E.U./dL (NORMAL)
[2020-05-05 01:54] LABS: CLARITY,URINE HAZY (CLEAR); HCG UR QUAL NEGATIVE
[2020-05-05 01:56] LABS: AMPHETAMINE SCREEN,URINE NEGATIVE (NEGATIVE); BACTERIA,URINE Moderate /HPF (None Seen); BENZODIAZEPINES SCREEN, URINE POSITIVE (NEGATIVE); COCAINE SCREEN URINE NEGATIVE (NEGATIVE); METHADONE SCREEN, URINE NEGATIVE (NEGATIVE); METHAMPHETAMINES SCREEN, URINE NEGATIVE (NEGATIVE); OPIATE SCREEN, URINE NEGATIVE (NEGATIVE); OXYCODONE SCREEN, URINE NEGATIVE (NEGATIVE); PROPOXYPHENE SCREEN, URINE NEGATIVE (NEGATIVE); RBC,URINE 0-5 /HPF (0-5); SQUAMOUS EPITHELIAL CELL,UR MANY Squamous (<= Few); TRICYCLIC ANTIDEPRESSANT,URINE NEGATIVE (NEGATIVE)
--- NOTE | 2020-05-05 02:15 | ED Physician Documentation ---
PD HPI SEIZURE - Stated complaint Stated Complaint: SIGNS OF SEASURE - Chief complaint Chief Complaint: General - History obtained from History obtained from: Patient, Family (mother) - History of Present Illness Timing - onset: Today Witnessed: Witnessed Number of seizures: Multiple, Lasted - seconds Description of seizure activity: Focal, Abscence, Postictal Injury during seizure: None History of seizures: Known seizure disorder Contributing factors: No: Off meds, Out of meds, Changed meds, Low blood sugar, Head injury, Substance abuse, EtOH withdrawal, Benzo withdrawal, Fever, Sleep deprivation Similar symptoms before: Diagnosis (seizure disorder) Recently seen: Not recently seen - Additional information Additional information: 25 y/o female with a known seizure disorder has had her medications adjusted about 6 months ago and her seizures have been controlled. She is scheduled to go in for an invasive brain monitoring to map her seizures and has not been able to follow up because of covid and she has had improved control. She has began twitching yesterday and today she is having seizures. Mother considered giving the ativan but came in to the ED instead. She has not been ill recently. Review of Systems Constitutional: denies: Fever Eyes: denies: Decreased vision Ears: denies: Ear pain Nose: denies: Rhinorrhea / runny nose, Congestion Throat: denies: Sore throat Cardiac: denies: Chest pain / pressure, Palpitations Respiratory: denies: Dyspnea, Cough GI: denies: Abdominal Pain, Nausea, Vomiting, Constipation, Diarrhea : denies: Dysuria, Frequency Skin: denies: Rash Musculoskeletal: denies: Neck pain, Back pain, Extremity pain Neurologic: reports: Seizure. 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 : None HEENT: None Psych: Depression, Anxiety Musculoskeletal: None Derm: None - Past Surgical History Past Surgical History: Yes Ortho: Other /PANEL MONITOR: Hysterectomy, Breast reduction, Breast implants Derm: Other - Present Medications Home Medications: Ambulatory Orders Medication Instructions Recorded Confirmed PARoxetine HCl [Paxil] 30 mg PO DAILY #30 tablet 01/04/18 05/05/20 lamoTRIgine [LaMICtal] 100 mg PO BID 11/11/18 05/05/20 Clobazam [Onfi] 10 mg PO DAILY 05/05/20 05/05/20 Vitamin B Complex Vit C No.3 [B 1 cap PO DAILY 05/05/20 05/05/20 Complex with Vitamin C] - Allergies Allergies/Adverse Reactions: Allergies Allergy/AdvReac Type Severity Reaction Status Date / Time Penicillins Allergy Unknown Verified 05/05/20 00:04 - Social History Does the pt smoke?: No Smoking Status: Never smoker Does the pt drink ETOH?: No Does the pt have substance abuse?: No - Immunizations Immunizations are current?: Yes - POLST Patient has POLST: No POLST Status: Full Code PD ED PE NORMAL - Vitals Vital signs reviewed: Yes (hypertensive ) - General General: Alert and oriented X 3, No acute distress - HEENT HEENT: Atraumatic, PERRL, EOMI, Ears normal, Moist mucous membranes - Neck Neck: Supple, no meningeal sign, No bony TTP - Cardiac Cardiac: RRR, No murmur - Respiratory Respiratory: No respiratory distress, Clear bilaterally - Abdomen Abdomen: Normal bowel sounds, Soft, Non tender, Non distended, No organomegaly - Back Back: No CVA TTP, No spinal TTP - Derm Derm: Normal color, Warm and dry, No rash - Extremities Extremities: No deformity, No edema - Neuro Neuro: Alert and oriented X 3, environmental 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, No motor deficit, No sensory deficit, Normal speech Eye Opening: Spontaneous Motor: Obeys Commands Verbal: Oriented GCS Score: 15 - Psych Psych: Normal mood, Normal affect Results - Vitals Vitals: Vital Signs - 24 hr 05/05/20 05/05/20 05/05/20 00:01 00:14 02:16 Temperature 36.5 C 36.5 C Heart Rate 93 93 86 Respiratory 14 14 Rate Blood Pressure 139/103 H 139/103 H 128/88 H O2 Saturation 99 99 97 Oxygen O2 Source Room air - Labs Labs: Laboratory Tests 05/05/20 05/05/20 05/05/20 01:05 01:05 01:35 WBC 9.6 RBC 4.14 L Hgb 12.6 Hct 38.0 MCV 91.8 MCH 30.4 MCHC 33.2 RDW 11.9 L Plt Count 201 MPV 10.2 Neut # (Auto) 7.4 H Lymph # (Auto) 1.4 L [place] # (Auto) 0.7 Eos # (Auto) 0.0 Baso # (Auto) 0.0 Absolute Nucleated RBC 0.00 Nucleated RBC % 0.0 Sodium 136 Potassium 3.4 L Chloride 101 Carbon Dioxide 25 Anion Gap 10.0 BUN 9 Creatinine 0.6 Estimated GFR (MDRD) 124 Glucose 109 H Calcium 9.1 Total Bilirubin 0.5 AST 22 ALT 20 Alkaline Phosphatase 78 Total Protein 7.7 Albumin 4.2 Globulin 3.5 Albumin/Globulin Ratio 1.2 Lipase 20 L Urine Color YELLOW Urine Clarity HAZY Urine pH 6.5 Ur Specific [place] 1.020 Urine Protein NEGATIVE Urine Glucose (UA) NEGATIVE Urine Ketones NEGATIVE Urine Occult Blood NEGATIVE Urine Nitrite NEGATIVE Urine Bilirubin NEGATIVE Urine Urobilinogen 0.2 (NORMAL) Ur Leukocyte Esterase SMALL H Urine RBC 0-5 Urine WBC 4-5 Ur Squamous Epith Cells MANY Squamous H Urine Bacteria Moderate H Ur Microscopic Review INDICATED Urine Culture Comments NOT INDICATED Urine HCG, Qual NEGATIVE Urine Opiates Screen NEGATIVE Ur Oxycodone Screen NEGATIVE Urine Methadone Screen NEGATIVE Ur Propoxyphene Screen NEGATIVE Ur Barbiturates Screen NEGATIVE Ur Tricyclics Screen NEGATIVE Ur Phencyclidine Scrn NEGATIVE Ur Amphetamine Screen NEGATIVE U Methamphetamines Scrn NEGATIVE U Benzodiazepines Scrn POSITIVE H Urine Cocaine Screen NEGATIVE U Cannabinoids Screen POSITIVE H PD MEDICAL DECISION MAKING - ED course Complexity details: reviewed old records, reviewed results, re-evaluated patient, considered differential, d/w patient, d/w family ED course: 24-year-old female with a known seizure disorder is having an increased number of seizures and we are looking for a trigger for her seizures. While she was here in the emergency department I did witness a seizure that she had started with some twitching of her of her hand while she was still conscious and she then developed more more twitching of her hand until both hands were involved and she was staring eyes were dilated and she was not responding. Following this when her seizure ended she looked normal and was speaking to us but she was not oriented. Her postictal period lasted maybe 5 minutes. She had further seizure-like activity and we administered Ativan 1 mg IM. She is given a second dose orally. She has control and feels well. She will contact her neurologist today about the increased activity. She has not had a seizure in about 6 months. Departure - Departure Disposition: 01 Home, Self Care Clinical Impression: Recurrent seizures Condition: Stable Instructions: ED Seizure Recurrent Follow-Up: CAM EMERSON MD [Primary Care Provider] - Comments: Today you have had recurrent seizures in the seems to have been improved by the use of oral Ativan. Talk to your neurologist today about any further medication changes.
[2020-05-05] MEDS ORDERED: POTASSIUM CHLORIDE 20 MEQ TABLET PO STA (02:22)
[2020-05-05] MEDS ORDERED: LORazepam 1 MG TABLET PO STA (02:29)
[2020-05-05 03:58] VITALS: BP 144/74
== END 2020-05-05 03:58 | disposition home or self-care (01) ==
LOC: ED 23:52
DX: G40.909 Epilepsy, unspecified, not intractable, without status epilepticus (principal)
CPT/HCPCS: 80053; 80175; 80306; 81001; 81025; 83690; 85025; 96372; 99283; 99284; A9270; J2060; J8499; 81003; 87086

== ENCOUNTER 2020-08-24 | Emergency (ER) | payer OTHER ==
--- NOTE | 2020-08-24 01:38 | ED Physician Documentation ---
PD HPI SEIZURE - Stated complaint Stated Complaint: SZ - Chief complaint Chief Complaint: Neuro - History obtained from History obtained from: Patient, Family (mother) - History of Present Illness Witnessed: Witnessed Number of seizures: Multiple, Recovered between seizure Description of seizure activity: Generalized Pain level now: 0 Associated symptoms: None History of seizures: Known seizure disorder Contributing factors: No: Off meds Similar symptoms before: Diagnosis (epilepsy) Recently seen: Not recently seen - Additional information Additional information: known seizure disorder and taking three AED, brought to ED by a neighbor for recurrent seizures. Patient tells me she feels well at this time but does not recall the events and asks that I speak with her mother. Patient uses her cell phone to call her mother and I gathered the following HPI from her. The mother I spoke with did not witness the seizures, but she spoke with her (patient's other mother) who did witness the seizures. The mother who witnessed the seizures is scheduled for surgery in the morning and thus did not come to ED. The mother I converse with over the phone is out of town. Patient reportedly had 3 seizures tonight (approximately 9:30, 10 PM, and 11PM). It is difficult to ascertain whether the seizures were grand mal. There was recovery to baseline between seizures. Patient vomited after the first seizure. She was given a 2mg lorazepam tablet after second seizure which was prescribed for her to take PRN seizures. The bottle is with patient in ED, and only one of the prescribed four tablets is missing (c/w HPI). Patient and mother think that she has not had a seizure between tonight and when she was last in this ED in April. Patient says she has not missed any doses of medications. 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 denies: Abdominal Pain Neurologic: reports: Seizure. 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 : None HEENT: None Psych: Depression, Anxiety Musculoskeletal: None Derm: None - Past Surgical History Past Surgical History: Yes Ortho: Other /BUCKET OPERATOR: Hysterectomy, Breast reduction, Breast implants Derm: Other - Present Medications Home Medications: Ambulatory Orders Medication Instructions Recorded Confirmed lamoTRIgine [LaMICtal] 250 mg PO BID 11/11/18 08/24/20 Clobazam [Onfi] 15 mg PO BID 05/05/20 08/24/20 Vitamin B Complex Vit C No.3 [B 1 cap PO DAILY 05/05/20 08/24/20 Complex with Vitamin C] LORazepam [Lorazepam] 2 mg PO PRN 08/24/20 Lacosamide [Vimpat] 150 mg PO BID 08/24/20 08/24/20 PARoxetine HCl [Paxil] 60 mg PO DAILY 08/24/20 08/24/20 - Allergies Allergies/Adverse Reactions: Allergies Allergy/AdvReac Type Severity Reaction Status Date / Time Penicillins Allergy Unknown Verified 08/24/20 04:05 - Social History Does the pt smoke?: No Smoking Status: Never smoker Does the pt drink ETOH?: No Does the pt have substance abuse?: No - Immunizations Immunizations are current?: Yes - POLST Patient has POLST: No POLST Status: Full Code PD ED PE NORMAL - Vitals Vital signs reviewed: Yes - General General: Alert and oriented X 3, No acute distress, Well developed/nourished - HEENT HEENT: Moist mucous membranes, Other (no tongue injury (no abrasion, laceration, or echymosis)) - Neck Neck: Supple, no meningeal sign - Cardiac Cardiac: RRR, No murmur - Respiratory Respiratory: No respiratory distress, Clear bilaterally - Neuro Neuro: Alert and oriented X 3, 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 support 2-12 intact, No motor deficit, No sensory deficit, Normal speech Eye Opening: Spontaneous Motor: Obeys Commands Verbal: Oriented GCS Score: 15 Results - Vitals Vitals: Vital Signs - 24 hr 08/24/20 08/24/20 08/24/20 00:09 00:12 01:41 Temperature 37.2 C 37.2 C 37.2 C Heart Rate 89 89 106 H Respiratory 19 19 18 Rate Blood Pressure 135/80 H 135/80 H 134/81 H O2 Saturation 100 100 100 08/24/20 08/24/20 03:00 03:28 Temperature 37.2 C 37.2 C Heart Rate 89 89 Respiratory 18 18 Rate Blood Pressure 122/75 122/75 O2 Saturation 99 99 Oxygen O2 Source Room air PD MEDICAL DECISION MAKING - ED course Complexity details: considered differential, d/w patient ED course: I d/w patient's mother via phone as noted in HPI. I offered to contact patient's neurologist now, but she says she is comfortable with d/c without testing and she will contact patient's neurologist in the morning to discuss f/u. FSBS 111 in ED. Departure - Departure Disposition: 01 Home, Self Care Clinical Impression: Seizure Condition: Good Instructions: ED Seizure Recurrent Follow-Up: CAM EMERSON MD [Primary Care Provider] - (Contact your neurologist this morning to discuss possible medication adjustment) Discharge Date/Time: 08/24/20 03:28
[2020-08-24 03:28] VITALS: BP 122/75
== END 2020-08-24 03:28 | disposition home or self-care (01) ==
LOC: ED
DX: G40.909 Epilepsy, unspecified, not intractable, without status epilepticus (principal)
CPT/HCPCS: 99283; 99284

== ENCOUNTER 2020-08-24 03:50 | Emergency (ER) | payer OTHER ==
--- NOTE | 2020-08-24 04:00 | ED Physician Documentation ---
PD HPI SEIZURE - Stated complaint Stated Complaint: SEIZURE - History obtained from History obtained from: Patient - History of Present Illness Timing - onset: How many minutes ago (approximately 15 minutes ACCOUNTING INTERN) Witnessed: Witnessed Number of seizures: Single Description of seizure activity: Generalized, LOC, Postictal Injury during seizure: None History of seizures: Known seizure disorder Contributing factors: No: Off meds, Out of meds, Changed meds Recently seen: Emergency Dept - Additional information Additional information: patient had just been discharged from this ED after evaluation for seizures (known seizure d/o). Her neighbor was driving her home but [address], patient had another seizure. Patient does not recall the event but on my HPI she again says she feels well and asymptomatic. She again denies missing any doses of medications. I spoke with the neighbor who had been driving patient home. She says that as they were driving through [place], patient had sudden LOC, turned head to one side and had rhythmic, coordinated jerking motions of her limbs. Patient vomited x 1 as soon as she stopped seizing. The neighbor describes a post-ictal phase lasting 10-15 minutes when patient was sonorous, not responding. Patient gradually became increasingly awake and alert. Review of Systems Constitutional: denies: Fever Eyes: denies: Loss of vision, Decreased vision, Photophobia Cardiac: reports: Reviewed and negative Respiratory: reports: Reviewed and negative GI: reports: Vomiting (x1). denies: Nausea Neurologic: reports: Seizure. denies: Headache, Head injury PD PAST MEDICAL HISTORY - Past Medical History Cardiovascular: None Respiratory: None Neuro: Seizure disorder Endocrine/Autoimmune: None GI: None OFFICE COPY SELECTOR: None : None HEENT: None Psych: Depression, Anxiety Musculoskeletal: None Derm: None - Past Surgical History Past Surgical History: Yes Ortho: Other /OFFICE COPY SELECTOR: Hysterectomy, Breast reduction, Breast implants Derm: Other - Present Medications Home Medications: Ambulatory Orders Medication Instructions Recorded Confirmed lamoTRIgine [LaMICtal] 250 mg PO BID 11/11/18 08/24/20 Clobazam [Onfi] 15 mg PO BID 05/05/20 08/24/20 Vitamin B Complex Vit C No.3 [B 1 cap PO DAILY 05/05/20 08/24/20 Complex with Vitamin C] LORazepam [Lorazepam] 2 mg PO PRN 08/24/20 Lacosamide [Vimpat] 150 mg PO BID 08/24/20 08/24/20 PARoxetine HCl [Paxil] 60 mg PO DAILY 08/24/20 08/24/20 - Allergies Allergies/Adverse Reactions: Allergies Allergy/AdvReac Type Severity Reaction Status Date / Time Penicillins Allergy Unknown Verified 08/24/20 04:05 - Social History Does the pt smoke?: No Smoking Status: Never smoker Does the pt drink ETOH?: No Does the pt have substance abuse?: No - Immunizations Immunizations are current?: Yes - POLST Patient has POLST: No POLST Status: Full Code PD ED PE NORMAL - Vitals Vital signs reviewed: Yes - General General: Alert and oriented X 3, No acute distress, Well developed/nourished - HEENT HEENT: PERRL, EOMI, Moist mucous membranes, Other (no tongue injury (no laceration, abrasion, echymosis)) - Neck Neck: Supple, no meningeal sign - Cardiac Cardiac: RRR, No murmur - Respiratory Respiratory: No respiratory distress, Clear bilaterally - Neuro Neuro: Alert and oriented X 3, central lab technician 2-12 intact, No motor deficit, No sensory deficit, Normal speech Eye Opening: Spontaneous Motor: Obeys Commands Verbal: Oriented GCS Score: 15 - Psych Psych: Normal mood, Normal affect Results - Vitals Vitals: Vital Signs - 24 hr 08/24/20 08/24/20 08/24/20 04:06 04:09 06:09 Temperature 37.1 C 37.1 C 37.1 C Heart Rate 104 H 90 81 Respiratory 24 24 20 Rate Blood Pressure 119/78 119/78 120/75 O2 Saturation 97 96 98 08/24/20 06:42 Temperature 37.1 C Heart Rate 81 Respiratory 20 Rate Blood Pressure 120/75 O2 Saturation 97 Oxygen O2 Source Room air PD MEDICAL DECISION MAKING - ED course Complexity details: reviewed old records, considered differential, d/w patient ED course: D/W Dr. Machado (patient's neurologist at [facility]); he recommends giving 2mg PO lorazepam now, instructing patient to increase her Clobazam to 20mg PO QAM (from 15 mg) whilst continuing the 15 mg QPM dosing. He also requests testing of her seizure medications. I do not see an order available for clobazam levels, but I did order the lamictal and vimpat levels. Dr. Machado ashvin f/u with patient and the results of these levels. Departure - Departure Disposition: 01 Home, Self Care Clinical Impression: Seizure Condition: Good Instructions: ED Seizure Recurrent Comments: Your neurologist recommends the following medication change: CLOBAZAM 20 mg every morning, 15 mg every evening. Continue all other medications as before. Call your neurologist this morning to discuss follow up. Your neurologist recommended blood tests to check the levels of all three of your seizure medications; unfortunately, we can only test for lamictal and vimpat. We were unable to test your clobazam level. Your lamictal and vimpat levels will likely take a few days for results and your neurologist can check these results. Discharge Date/Time: 08/24/20 06:42
[2020-08-24] MEDS ORDERED: LORazepam 0.5 MG TABLET PO STA (04:42)
[2020-08-24 06:33] VITALS: BP 120/75
== END 2020-08-24 06:42 | disposition home or self-care (01) ==
LOC: ED 03:50
DX: G40.909 Epilepsy, unspecified, not intractable, without status epilepticus (principal); R56.9 Unspecified convulsions
CPT/HCPCS: 36415; 80175; 80299; 99283; 99284; A9270; 80235

== ENCOUNTER 2020-09-17 21:05 | Emergency (ER) | payer OTHER ==
--- OUTSIDE RECORDS SUMMARY | 2020-09-17 21:09 | EXTERNAL MEDICAL SUMMARY RPT | Continuity of Care Document ---
:1995 Demographics Phone Unavailable Preferred Language Unknown Marital Status Unknown Jainism Affiliation Unknown Race Unknown Ethnic Group Unknown Author Organization [place] Address [address] [phone] Phone Allergies Encounters Medications Problems Results
--- OUTSIDE RECORDS SUMMARY | 2020-09-17 21:14 | EXTERNAL MEDICAL SUMMARY RPT | Continuity of Care Document ---
:1995 Demographics Phone Unavailable Preferred Language Unknown Marital Status Unknown Tenriism Affiliation Unknown Race Unknown Ethnic Group Unknown Author Organization [place] Address [address] [phone] Phone Allergies Encounters Medications Problems Results
--- NOTE | 2020-09-17 22:11 | ED Physician Documentation ---
PD HPI SEIZURE - Stated complaint Stated Complaint: SEIZURE - Chief complaint Chief Complaint: MHE - History obtained from History obtained from: Patient - History of Present Illness Timing - onset: Today Witnessed: Witnessed Number of seizures: Multiple Injury during seizure: None History of seizures: Known seizure disorder Contributing factors: No: Off meds Recently seen: Emergency Dept - Additional information Additional information: patient presents with possible seizures. Patient says she had a panic attack at work today and she says that her doctor has told her that what she calls panic attack is actually a seizure. Patient says during these episodes she becomes quiet and stares, feels isolated even though there were people around her. She said she does not lose consciousness but that she becomes nonverbal. She says the episodes last a few minutes. She says her mother picked her up from work after the first episode, but that she had two more smaller episodes on the way home. Mother gave patient 2 mg tablet of lorazepam PO and brought patient here because of the recurrence of these episodes. on presentation, patient says she is asymptomatic Review of Systems Constitutional: reports: Reviewed and negative Eyes: reports: Reviewed and negative Cardiac: reports: Reviewed and negative Respiratory: reports: Reviewed and negative GI: reports: Nausea. denies: Vomiting Musculoskeletal: reports: Reviewed and negative Neurologic: reports: Seizure. denies: Generalized weakness, Focal weakness, Numbness, Headache PD PAST MEDICAL HISTORY - Past Medical History Past Medical History: Yes Cardiovascular: None Respiratory: None Neuro: Seizure disorder Endocrine/Autoimmune: None GI: None INSTRUCTOR OF EDUCATION: None : None HEENT: None Psych: Depression, Anxiety Musculoskeletal: None Derm: None - Past Surgical History Past Surgical History: Yes Ortho: Other /INSTRUCTOR OF EDUCATION: Hysterectomy, Breast reduction, Breast implants Derm: Other - Present Medications Home Medications: Ambulatory Orders Medication Instructions Recorded Confirmed lamoTRIgine [LaMICtal] 250 mg PO BID 11/11/18 09/17/20 Clobazam [Onfi] 15 mg PO HS 05/05/20 09/17/20 LORazepam [Lorazepam] 2 mg PO Q4HR PRN 08/24/20 09/17/20 Lacosamide [Vimpat] 150 mg PO BID 08/24/20 09/17/20 PARoxetine HCl [Paxil] 60 mg PO DAILY 08/24/20 09/17/20 Cholecalciferol (Vitamin D3) 1,000 mg PO DAILY 09/17/20 09/17/20 [Vitamin D3] Clobazam [Onfi] 20 mg PO DAILY 09/17/20 09/17/20 Pnv No.121/Iron/Folic Acid 1 tab PO DAILY 09/17/20 09/17/20 [ Multivitamin Tablet] LORazepam [Lorazepam] 2 mg PO Q6HR PRN #14 tablet 09/18/20 - Allergies Allergies/Adverse Reactions: Allergies Allergy/AdvReac Type Severity Reaction Status Date / Time Penicillins Allergy Unknown Verified 09/17/20 21:18 - Social History Does the pt smoke?: Yes Smoking Status: Current some day smoker Does the pt drink ETOH?: No Does the pt have substance abuse?: Yes Substance Use and Type: Marijuana - Immunizations Immunizations are current?: Yes - POLST Patient has POLST: No POLST Status: Full Code PD ED PE NORMAL - Vitals Vital signs reviewed: Yes - General General: Alert and oriented X 3, No acute distress, Well developed/nourished - HEENT HEENT: PERRL, EOMI, Moist mucous membranes - Neck Neck: Supple, no meningeal sign - Cardiac Cardiac: RRR, No murmur, No gallop, No rub - Respiratory Respiratory: No respiratory distress, Clear bilaterally - Abdomen Abdomen: Soft, Non tender - Neuro Neuro: Alert and oriented X 3, bulb assembler 2-12 intact, No motor deficit, No sensory deficit, Normal speech Eye Opening: Spontaneous Motor: Obeys Commands Verbal: Oriented GCS Score: 15 Results - Vitals Vitals: Oxygen O2 Source Room air PD MEDICAL DECISION MAKING - ED course Complexity details: reviewed results, re-evaluated patient, considered differential, d/w patient, d/w family ED course: patient is observed in emergency department. No test performed during ER stay, as the episode she describes are not new and, per patient, or consistent with previous seizures. The description she provides for her seizures does not suggest typical grand mal seizure, but possibly absence seizures. The mother, in the emergency department at bedside, says patients neurologist says those episodes are seizures but does not have a specific label for what type of seizures they are. during her stay in emergency department, while I was in the room, patient had a seizure that was consistent with a generalized tonic clonic seizure. Patients head turned to one side, she became nonverbal, her body stiffened, followed by rhythmic and coordinated jerking movements of all four extremities and her body. After approximately 30 seconds, this seizure activity stopped, patient had one episode of emesis. Patient had approximately 5 to 10 minutes of post ictal state, and was back to baseline mental state after approximately 10 minutes. I discussed the option of contacting her neurologist to discuss possible changes in her medication regimen, but patient and mother strongly prefer to be discharged at this time. Mother gave another 2 mg PO lorazepam prior to leaving the ER, asking me first if this was appropriate and I agreed this would be an appropriate measure to raise the seizure threshold. At time of discharge, patient is again asymptomatic and reiterates her preference to be discharged. Patient will contact her neurologist in the morning Departure - Departure Disposition: 01 Home, Self Care Clinical Impression: Seizure Condition: Good Instructions: ED Seizure Recurrent Follow-Up: CAM EMERSON MD [Primary Care Provider] - Prescriptions: LORazepam [Lorazepam] 2 mg PO Q6HR PRN #14 tablet PRN Reason: Seizure Comments: Contact your neurologist to discuss possible changes in your medications. Discharge Date/Time: 09/18/20 00:55
[2020-09-18 00:56] VITALS: BP 126/80
== END 2020-09-18 00:55 | disposition home or self-care (01) ==
LOC: ED 21:05
DX: G40.909 Epilepsy, unspecified, not intractable, without status epilepticus (principal); R11.0 Nausea; Z72.0 Tobacco use
CPT/HCPCS: 99283; 99284

== ENCOUNTER 2020-11-30 19:53 | Emergency (ER) | payer OTHER ==
[2020-11-30 20:21] VITALS: BP 127/73
[2020-11-30 21:12] LABS: BASOPHILS % (AUTO) 0.2 %; EOSINOPHILS % (AUTO) 0.1 %; HCT - HEMATOCRIT 41.6 % (37.0-47.0); HGB - HEMOGLOBIN 13.7 g/dL (12.0-16.0); LYMPHOCYTES # (AUTO) 1.1 10^3/uL (1.5-3.5); LYMPHOCYTES % (AUTO) 10.2 %; MEAN CORPUSCULAR HEMOGLOBIN 31.3 pg (27.0-31.0); MEAN CORPUSCULAR HGB CONC 32.9 g/dL (32.0-36.0); MEAN PLATELET VOLUME 10.2 fL (7.9-10.8); MONOCYTES # (AUTO) 0.8 10^3/uL (0.0-1.0); MONOCYTES % (AUTO) 7.1 %; NEUTROPHILS # (AUTO) 8.6 10^3/uL (1.5-6.6); NEUTROPHILS % (AUTO) 82.1 %; PLT - PLATELET COUNT 228 10^3/uL (130-450); RED BLOOD COUNT 4.38 10^6/uL (4.20-5.40); RED CELL DISTRIBUTION WIDTH 12.2 % (12.0-15.0); WHITE BLOOD COUNT 10.5 x10^3/uL (4.8-10.8)
[2020-11-30 21:26] LABS: ALBUMIN 4.5 g/dL (3.2-5.5); ALBUMIN/GLOBULIN RATIO 1.3 (1.0-2.2); BILIRUBIN,TOTAL 0.7 mg/dL (0.2-1.0); CALCIUM 9.8 mg/dL (8.5-10.3); CREATININE 0.7 mg/dL (0.4-1.0); POTASSIUM 3.8 mmol/L (3.5-5.0)
[2020-11-30] MEDS ORDERED: LORazepam 2 MG/ML VIAL IM STA (22:01)
--- NOTE | 2020-11-30 22:03 | ED Physician Documentation ---
History of Present Illness - Stated complaint Stated Complaint: SEIZURES - Chief complaint Chief Complaint: Neuro - History obtained from History obtained from: Patient, Family - Additonal information Additional information: 25-year-old woman with somewhat uncontrolled seizure disorder, frequent mini seizures seizures. Potentially has had 2 more major seizures over the last 24 hours. None were witnessed but she was making funny noises in bed yesterday and difficult to arouse. She did abrade her tongue but was not incontinent. Similar episode earlier today and was confused afterwards. Now back to normal without specific complaints. Review of Systems Constitutional: denies: Fever, Chills Nose: denies: Rhinorrhea / runny nose Cardiac: denies: Chest pain / pressure, Palpitations Respiratory: denies: Dyspnea, Cough PD PAST MEDICAL HISTORY - Past Medical History Cardiovascular: None Respiratory: None Neuro: Seizure disorder Endocrine/Autoimmune: None GI: None SEED ANALYST: None : None HEENT: None Psych: Depression, Anxiety Musculoskeletal: None Derm: None - Past Surgical History Past Surgical History: Yes Ortho: Other /SEED ANALYST: Hysterectomy, Breast reduction, Breast implants Derm: Other - Present Medications Home Medications: Ambulatory Orders Medication Instructions Recorded Confirmed lamoTRIgine [LaMICtal] 250 mg PO BID 11/11/18 09/17/20 Clobazam [Onfi] 15 mg PO HS 05/05/20 09/17/20 LORazepam [Lorazepam] 2 mg PO Q4HR PRN 08/24/20 09/17/20 Lacosamide [Vimpat] 150 mg PO BID 08/24/20 09/17/20 PARoxetine HCl [Paxil] 60 mg PO DAILY 08/24/20 09/17/20 Cholecalciferol (Vitamin D3) 1,000 mg PO DAILY 09/17/20 09/17/20 [Vitamin D3] Clobazam [Onfi] 20 mg PO DAILY 09/17/20 09/17/20 Pnv No.121/Iron/Folic Acid 1 tab PO DAILY 09/17/20 09/17/20 [ Multivitamin Tablet] LORazepam [Lorazepam] 2 mg PO Q6HR PRN #14 tablet 09/18/20 - Allergies Allergies/Adverse Reactions: Allergies Allergy/AdvReac Type Severity Reaction Status Date / Time Penicillins Allergy Unknown Verified 11/30/20 20:21 - Social History Does the pt smoke?: Yes Smoking Status: Current some day smoker Does the pt drink ETOH?: No Does the pt have substance abuse?: Yes - Immunizations Immunizations are current?: Yes - POLST Patient has POLST: No POLST Status: Full Code PD ED PE NORMAL - Vitals Vital signs reviewed: Yes - General General: Alert and oriented X 3, No acute distress - HEENT HEENT: PERRL, EOMI, Pharynx benign - Neck Neck: Supple, no meningeal sign, No bony TTP - Extremities Extremities: No deformity, No tenderness to palpate, Normal ROM s pain - Neuro Neuro: Alert and oriented X 3, No motor deficit, No sensory deficit, Normal speech Eye Opening: Spontaneous Motor: Obeys Commands Verbal: Oriented GCS Score: 15 - Psych Psych: Normal mood, Normal affect Results - Vitals Vitals: Vital Signs - 24 hr 11/30/20 20:10 Temperature 36.1 C L Heart Rate 124 H Respiratory 16 Rate Blood Pressure 127/73 O2 Saturation 96 Oxygen O2 Source Room air - Labs Labs: Laboratory Tests 11/30/20 11/30/20 11/30/20 21:08 21:08 21:08 WBC 10.5 RBC 4.38 Hgb 13.7 Hct 41.6 MCV 95.0 MCH 31.3 H MCHC 32.9 RDW 12.2 Plt Count 228 MPV 10.2 Neut # (Auto) 8.6 H Lymph # (Auto) 1.1 L [place] # (Auto) 0.8 Eos # (Auto) 0.0 Baso # (Auto) 0.0 Absolute Nucleated RBC 0.00 Nucleated RBC % 0.0 Sodium 137 Potassium 3.8 Chloride 103 Carbon Dioxide 24 Anion Gap 10.0 BUN 9 Creatinine 0.7 Estimated GFR (MDRD) 104 Glucose 112 H Calcium 9.8 Total Bilirubin 0.7 AST 46 H ALT 49 Alkaline Phosphatase 96 Total Protein 8.0 Albumin 4.5 Globulin 3.5 Albumin/Globulin Ratio 1.3 Lipase 23 Phenytoin < 2.5 PD MEDICAL DECISION MAKING - ED course ED course: 25-year-old woman with seizure disorder and potentially up to 2 clonic clonic seizures in last 24 hours albeit not witnessed. Now back to normal. Will give a dose of IM Ativan here in discussed need to follow-up with her neurologist tomorrow. Departure - Departure Disposition: 01 Home, Self Care Clinical Impression: Seizure, Recurrent seizures Condition: Good Record reviewed to determine appropriate education?: Yes Instructions: ED Seizure Recurrent Comments: Continue current antiepileptic medications. Return if worsening. As usual do not drive, drink to significance, climb ladders etc. Labs were unremarkable. Call or email your neurologist tomorrow.
== END 2020-11-30 22:16 | disposition home or self-care (01) ==
LOC: ED 19:53
DX: G40.901 Epilepsy, unspecified, not intractable, with status epilepticus (principal); F17.200 Nicotine dependence, unspecified, uncomplicated
CPT/HCPCS: 36415; 80053; 80185; 83690; 85025; 96372; 99283; J2060; 80048

== ENCOUNTER 2021-02-17 22:23 | Emergency (ER) | payer OTHER ==
--- NOTE | 2021-02-17 22:43 | ED Physician Documentation ---
PD HPI SEIZURE - Stated complaint Stated Complaint: POSSIBLE SEIZURE - Chief complaint Chief Complaint: Neuro - History obtained from History obtained from: Patient, Family (mother) - History of Present Illness Timing - onset: Enter time (16:30) Witnessed: Witnessed Number of seizures: Multiple, Lasted - seconds, Recovered between seizure Description of seizure activity: Other (see narrative below) Injury during seizure: None Pain level max: 0 Pain level now: 0 Associated symptoms: None History of seizures: Known seizure disorder Contributing factors: No: Off meds, Out of meds, Changed meds, Head injury, Fever Treatment ENROLLMENT MANAGEMENT VICE PRESIDENT: Valium Similar symptoms before: Diagnosis (seizure disorder) Recently seen: Not recently seen - Additional information Additional information: patient and mother (mother is in ED at bedside) report that patient has had fr equent seizures since 4:30 PM today without inciting event, increasing frequency and with some seizures within 15-30 minutes of each other. Episodes last 15-30 seconds. Patient says I have been having panic attacks but both patient and mother point out that this is what she (patient) calls these episodes whereas, per patient and mother, patients neurologist says these episodes are seizures. Neither patient nor parent knows what type of seizures these are or are being diagnosed as. Patient has upcoming (ongoing) testing, scheduled for MRI next Friday with some subsequent testing, the goal of which, per mother of patient, is to plan for some surgical procedure regarding her recurrent seizures. No recent missed or changed doses of AED. Mother gave patient two doses of PO valium 5mg ENROLLMENT MANAGEMENT VICE PRESIDENT but she subsequently noticed this rx had a few months ago. The episodes are described as lip-smacking, hand clenching, mild generalized tremulousness. However, patient recalls the events, is able to continue sitting or standing during these episodes. Does not appear to follow commands and is nonverbal during episodes. Review of Systems Constitutional: reports: Reviewed and negative Eyes: reports: Reviewed and negative Cardiac: reports: Reviewed and negative Respiratory: reports: Reviewed and negative GI: reports: Reviewed and negative Neurologic: reports: Seizure. denies: Generalized weakness, Focal weakness, Numbness, Headache, Head injury, LOC PD PAST MEDICAL HISTORY - Past Medical History Cardiovascular: None Respiratory: None Neuro: Seizure disorder Endocrine/Autoimmune: None GI: None SENIOR NET SOFTWARE ENGINEER: None : None HEENT: None Psych: Depression, Anxiety Musculoskeletal: None Derm: None - Past Surgical History Past Surgical History: Yes Ortho: Other /SENIOR NET SOFTWARE ENGINEER: Hysterectomy, Breast reduction, Breast implants Derm: Other - Present Medications Home Medications: Ambulatory Orders Medication Instructions Recorded Confirmed lamoTRIgine [LaMICtal] 250 mg PO BID 11/11/18 02/17/21 LORazepam [Lorazepam] 2 mg PO Q4HR PRN 08/24/20 02/17/21 Lacosamide [Vimpat] 150 mg PO BID 08/24/20 02/17/21 PARoxetine HCl [Paxil] 60 mg PO DAILY 08/24/20 02/17/21 Clobazam [Onfi] 10 mg PO BID 09/17/20 02/17/21 Pnv No.121/Iron/Folic Acid 1 tab PO DAILY 09/17/20 02/17/21 [ Multivitamin Tablet] LORazepam [Lorazepam] 2 mg PO Q6HR PRN #14 tablet 09/18/20 02/17/21 - Allergies Allergies/Adverse Reactions: Allergies Allergy/AdvReac Type Severity Reaction Status Date / Time Penicillins Allergy Unknown Verified 02/17/21 22:40 - Social History Does the pt smoke?: Yes Smoking Status: Current some day smoker Does the pt drink ETOH?: No Does the pt have substance abuse?: Yes - Immunizations Immunizations are current?: Yes - POLST Patient has POLST: No POLST Status: Full Code PD ED PE NORMAL - Vitals Vital signs reviewed: Yes - General General: Alert and oriented X 3, No acute distress, Well developed/nourished - HEENT HEENT: Atraumatic, PERRL, EOMI, Moist mucous membranes, Other (no tongue bite/abrasion/ecchymosis) - Neck Neck: No bony TTP - Cardiac Cardiac: RRR, No murmur, No gallop, No rub - Respiratory Respiratory: No respiratory distress, Clear bilaterally - Abdomen Abdomen: Soft, Non tender - Neuro Neuro: Alert and oriented X 3, delivery manager 2-12 intact, No motor deficit, No sensory deficit, Normal speech Eye Opening: Spontaneous Motor: Obeys Commands Verbal: Oriented GCS Score: 15 - Psych Psych: Normal mood, Normal affect Results - Vitals Vitals: Oxygen O2 Source Room air - Labs Labs: Laboratory Tests 02/17/21 02/17/21 23:29 23:29 WBC 12.4 H RBC 4.35 Hgb 13.9 Hct 41.2 MCV 94.7 MCH 32.0 H MCHC 33.7 RDW 12.0 Plt Count 253 MPV 10.4 Neut # (Auto) 10.7 H Lymph # (Auto) 1.1 L [place] # (Auto) 0.5 Eos # (Auto) 0.1 Baso # (Auto) 0.1 Absolute Nucleated RBC 0.00 Nucleated RBC % 0.0 Sodium 130 L Potassium 3.8 Chloride 96 L Carbon Dioxide 23 Anion Gap 11.0 BUN 7 Creatinine 0.6 Estimated GFR (MDRD) 124 Glucose 123 H Calcium 9.0 Total Bilirubin 0.3 AST 31 ALT 36 Alkaline Phosphatase 118 Total Protein 7.8 Albumin 4.1 Globulin 3.7 Albumin/Globulin Ratio 1.1 Lipase 34 PD MEDICAL DECISION MAKING - ED course Complexity details: reviewed old records, reviewed results, re-evaluated patient, considered differential, d/w patient, d/w family ED course: given lorazepam early in ED stay, no episodes of seizure or seizure-like activity during ED stay. Results of tests reviewed with patient and mother. They are comfortable with d/c at this time, will return if there are concerning signs and/or symptoms (such as, but not limited to, fever, increasingly frequent seizures, seizures of longer duration). I encouraged them to contact the patients neurology group to discuss possible changes in medication regimen. Departure - Departure Disposition: 01 Home, Self Care Clinical Impression: Seizure Condition: Good Instructions: ED Seizure Recurrent Comments: The blood test results tonight are unremarkable, with minimally elevated white blood cell count (this is a nonspecific finding and is so minimally elevated that it is not a cause for concern), mildly low sodium level (should not be causing symptoms unless it were much lower). You have not had further seizure activity during the emergency department stay. Contact your neurologist to arrange for next available appointment and to inquire as to whether any changes in your medication dosing and/or frequency is warranted. Discharge Date/Time: 02/18/21 01:40
[2021-02-17] MEDS: LORazepam 0.5 MG TABLET PO STA (23:12)
[2021-02-17 23:36] LABS: BASOPHILS # (AUTO) 0.1 10^3/uL (0.0-0.1); BASOPHILS % (AUTO) 0.4 %; EOSINOPHILS # (AUTO) 0.1 10^3/uL (0.0-0.7); EOSINOPHILS % (AUTO) 0.6 %; HCT - HEMATOCRIT 41.2 % (37.0-47.0); HGB - HEMOGLOBIN 13.9 g/dL (12.0-16.0); LYMPHOCYTES # (AUTO) 1.1 10^3/uL (1.5-3.5); LYMPHOCYTES % (AUTO) 8.6 %; MEAN CORPUSCULAR HGB CONC 33.7 g/dL (32.0-36.0); MEAN CORPUSCULAR VOLUME 94.7 fL (81.0-99.0); MEAN PLATELET VOLUME 10.4 fL (7.9-10.8); MONOCYTES # (AUTO) 0.5 10^3/uL (0.0-1.0); MONOCYTES % (AUTO) 3.9 %; NEUTROPHILS # (AUTO) 10.7 10^3/uL (1.5-6.6); NEUTROPHILS % (AUTO) 86.2 %; PLT - PLATELET COUNT 253 10^3/uL (130-450); RED BLOOD COUNT 4.35 10^6/uL (4.20-5.40); WHITE BLOOD COUNT 12.4 x10^3/uL (4.8-10.8)
[2021-02-17 23:50] LABS: ALBUMIN 4.1 g/dL (3.2-5.5); ALBUMIN/GLOBULIN RATIO 1.1 (1.0-2.2); BILIRUBIN,TOTAL 0.3 mg/dL (0.2-1.0); CREATININE 0.6 mg/dL (0.4-1.0); POTASSIUM 3.8 mmol/L (3.5-5.0); TOTAL PROTEIN 7.8 g/dL (6.7-8.2)
[2021-02-18 01:56] VITALS: BP 112/77
== END 2021-02-18 01:40 | disposition home or self-care (01) ==
LOC: ED 22:23
DX: R56.9 Unspecified convulsions (principal); F17.200 Nicotine dependence, unspecified, uncomplicated
CPT/HCPCS: 36415; 80053; 83690; 85025; 99283; A9270

== ENCOUNTER 2021-04-30 00:11 | Emergency (ER) | payer OTHER ==
[2021-04-30] MEDS ORDERED: lamoTRIgine 100 MG TABLET PO SCH (00:47)
[2021-04-30 00:58] LABS: BASOPHILS # (AUTO) 0.1 10^3/uL (0.0-0.1); BASOPHILS % (AUTO) 0.4 %; EOSINOPHILS # (AUTO) 0.1 10^3/uL (0.0-0.7); EOSINOPHILS % (AUTO) 1.1 %; HCT - HEMATOCRIT 40.4 % (37.0-47.0); HGB - HEMOGLOBIN 13.6 g/dL (12.0-16.0); LYMPHOCYTES % (AUTO) 8.4 %; MEAN CORPUSCULAR HEMOGLOBIN 31.4 pg (27.0-31.0); MEAN CORPUSCULAR HGB CONC 33.7 g/dL (32.0-36.0); MEAN CORPUSCULAR VOLUME 93.3 fL (81.0-99.0); MEAN PLATELET VOLUME 10.4 fL (7.9-10.8); MONOCYTES # (AUTO) 0.5 10^3/uL (0.0-1.0); MONOCYTES % (AUTO) 4.5 %; NEUTROPHILS # (AUTO) 9.8 10^3/uL (1.5-6.6); NEUTROPHILS % (AUTO) 85.4 %; PLT - PLATELET COUNT 230 10^3/uL (130-450); RED BLOOD COUNT 4.33 10^6/uL (4.20-5.40); RED CELL DISTRIBUTION WIDTH 11.8 % (12.0-15.0); WHITE BLOOD COUNT 11.5 x10^3/uL (4.8-10.8)
--- NOTE | 2021-04-30 01:04 | ED Physician Documentation ---
PD HPI SEIZURE - Stated complaint Stated Complaint: SEIZURE ACTIVITY - Chief complaint Chief Complaint: Neuro - History obtained from History obtained from: Patient - Additional information Additional information: Patient is a 26-year-old female presenting to the emergency department chief complaint of seizure activity. Endorses for history of seizure disorder which she states "appear similar to panic attacks". Reports that she had some nausea and vomiting earlier this evening and missed her regular evening dose of her Lamictal. Reports multiple "seizures" episodes this evening. Was given Ativan by her mother prior to arrival. Reports being amnestic to the events around her seizures however does not report any tongue biting or loss of bowel or bladder control. 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: None : None HEENT: None Psych: Depression, Anxiety Musculoskeletal: None Derm: None - Past Surgical History Past Surgical History: Yes Ortho: Other /INDUSTRIAL RADIOGRAPHER: Hysterectomy, Breast reduction, Breast implants Derm: Other - Present Medications Home Medications: Ambulatory Orders Medication Instructions Recorded Confirmed lamoTRIgine [LaMICtal] 250 mg PO BID 11/11/18 02/17/21 LORazepam [Lorazepam] 2 mg PO Q4HR PRN 08/24/20 02/17/21 Lacosamide [Vimpat] 150 mg PO BID 08/24/20 02/17/21 PARoxetine HCl [Paxil] 60 mg PO DAILY 08/24/20 02/17/21 Clobazam [Onfi] 10 mg PO BID 09/17/20 02/17/21 Pnv No.121/Iron/Folic Acid 1 tab PO DAILY 09/17/20 02/17/21 [ Multivitamin Tablet] LORazepam [Lorazepam] 2 mg PO Q6HR PRN #14 tablet 09/18/20 02/17/21 - Allergies Allergies/Adverse Reactions: Allergies Allergy/AdvReac Type Severity Reaction Status Date / Time Penicillins Allergy Unknown Verified 04/30/21 00:28 - Social History Does the pt smoke?: Yes Smoking Status: Current some day smoker Does the pt drink ETOH?: No Does the pt have substance abuse?: Yes - Immunizations Immunizations are current?: Yes - POLST Patient has POLST: No POLST Status: Full Code Results - Vitals Vitals: Vital Signs - 24 hr 01/02/0904/30/21 04/30/21 00:24 00:32 01:58 Temperature 36.0 C L Heart Rate 74 76 86 Respiratory 18 16 16 Rate Blood Pressure 116/76 118/67 116/72 O2 Saturation 96 97 97 Oxygen O2 Source Room air - Labs Labs: Laboratory Tests 04/30/21 04/30/21 04/30/21 00:51 00:51 00:51 WBC 11.5 H RBC 4.33 Hgb 13.6 Hct 40.4 MCV 93.3 MCH 31.4 H MCHC 33.7 RDW 11.8 L Plt Count 230 MPV 10.4 Neut # (Auto) 9.8 H Lymph # (Auto) 1.0 L [place] # (Auto) 0.5 Eos # (Auto) 0.1 Baso # (Auto) 0.1 Absolute Nucleated RBC 0.00 Nucleated RBC % 0.0 Sodium 138 Potassium 4.1 Chloride 104 Carbon Dioxide 24 Anion Gap 10.0 BUN 7 Creatinine 0.6 Estimated GFR (MDRD) 123 Glucose 104 H Lactic Acid 0.6 Calcium 9.5 Total Bilirubin 0.4 AST 23 ALT 22 Alkaline Phosphatase 110 Total Protein 7.8 Albumin 3.9 Globulin 3.9 Albumin/Globulin Ratio 1.0 Ethyl Alcohol < 5.0 PD MEDICAL DECISION MAKING - ED course Complexity details: reviewed old records, reviewed results, d/w patient ED course: Patient is 26-year-old female with known history seizure disorder presenting to the emergency department after seizure event that occurred earlier today. Afebrile, hemodynamically stable on arrival to the emergency department. Nonfocal nonlateralizing neurologic exam and no indications of postictal confusion at this time. I did order for comprehensive labs which were within normal limits are nonactionable. Additionally ordered a Lamictal level which is a send out and is pending at this time. Patient did report that she had missed her evening Lamictal and a ordered to 50 mg here to catch up with her previous dose. She was observed in the emergency department for several hours over which time she was noted to be resting comfortably and in no acute distress. At this time I will discharge her with instructions to follow-up with her neurologist. Otherwise clear return precautions and follow-up instructions were given prior to discharge. Departure - Departure Disposition: 01 Home, Self Care Clinical Impression: Seizure Instructions: Epilepsy How Seizures Affect Body Comments: Thank you for allowing us to care for you today at [facility]. All the testing performed in the emergency department today was very reassuring. I have sent a Lamictal level to our regional laboratory however this will take a few days to result. It is important that you follow-up with your neurologist as soon as you are able. Please inform them of your ER visit so that they can request this lab result as needed. I would like you to continue all of your current medications as prescribed. Please stay well-hydrated and get plenty of rest over the next few days. If it anytime you have any new or worsening symptoms please not hesitate to return. Discharge Date/Time: 04/30/21 01:58
[2021-04-30 01:11] LABS: ALBUMIN 3.9 g/dL (3.2-5.5); ALKALINE PHOSPHATASE 110 IU/L (42-121); ALT ALANINE AMINOTRANSFERASE 22 IU/L (10-60); AST ASPARTATE AMINOTRANSFERASE 23 IU/L (10-42); BILIRUBIN,TOTAL 0.4 mg/dL (0.2-1.0); BUN - BLOOD UREA NITROGEN 7 mg/dL (6-20); CALCIUM 9.5 mg/dL (8.5-10.3); CARBON DIOXIDE - CO2 24 mmol/L (21-32); CHLORIDE 104 mmol/L (101-111); CREATININE 0.6 mg/dL (0.4-1.0); ETOH - ETHANOL < 5.0 mg/dL; GFR - MDRD 123 (>89); GLUCOSE 104 mg/dL (70-100); POTASSIUM 4.1 mmol/L (3.5-5.0); SODIUM 138 mmol/L (135-145); TOTAL PROTEIN 7.8 g/dL (6.7-8.2)
[2021-04-30 01:59] VITALS: BP 116/72
== END 2021-04-30 01:58 | disposition home or self-care (01) ==
LOC: ED 00:11
DX: R56.9 Unspecified convulsions (principal); F17.200 Nicotine dependence, unspecified, uncomplicated
CPT/HCPCS: 36415; 80053; 80175; 80320; 83605; 85025; 99283; A9270; 80306; 81001; 81003; 81025; 87086

== ENCOUNTER 2021-08-07 19:28 | Emergency (ER) | payer OTHER ==
--- NOTE | 2021-08-07 22:30 | CT Report ---
PROCEDURE: HEAD WO INDICATIONS: head injury/headache/dizzy TECHNIQUE: Noncontrast 4.5 mm thick angled axial sections acquired from the foramen magnum to the vertex. For r adiation dose reduction, the following was used: automated exposure control, adjustment of mA and/or kV according to patient size. COMPARISON: None. FINDINGS: Image quality: Excellent. CSF spaces: Basal cisterns are patent. No extra-axial fluid collections. Ventricles are normal in size and shape. Brain: No midline shift. No intracranial masses or hemorrhage. Belle-white matter interface is norm al. Skull and face: Calvarium and visualized facial bones are intact, without suspicious lesions. Sinuses: Visualized sinuses and mastoids are clear. IMPRESSION: No acute intracranial abnormality. Reviewed by: Blaise Saucedo MD on 08/07/2021 10:29 PM PDT Approved by: Blaise Saucedo MD on 08/07/2021 10:29 PM PDT Station ID: [id number]
[2021-08-07] MEDS ORDERED: TETANUS/DIPHTHERIA/PERTUSSIS 0.5 ML SYRINGE IM ONE (22:35)
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
[2021-08-07 22:43] VITALS: BP 118/70
== END 2021-08-07 22:42 | disposition home or self-care (01) ==
LOC: ED 19:28
DX: S09.90XA Unspecified injury of head, initial encounter (principal); W01.0XXA Fall on same level from slipping, tripping and stumbling without subsequent striking against object, initial encounter; Y93.01 Activity, walking, marching and hiking; F17.200 Nicotine dependence, unspecified, uncomplicated; Z23 Encounter for immunization; Z71.85 Encounter for immunization safety counseling
CPT/HCPCS: 90471; 99282; 99284

== ENCOUNTER 2021-10-20 15:11 | Outpatient (CLI) | payer OTHER | END 2021-10-20 15:12 | disposition left against medical advice (07) | LOC: EMS 15:11 | DX: R11.0 Nausea (principal); R10.9 Unspecified abdominal pain; V49.59XA Passenger injured in collision with other motor vehicles in traffic accident, initial encounter; Y92.413 State road as the place of occurrence of the external cause ==

== ENCOUNTER 2022-02-27 18:33 | Outpatient (CLI) | payer OTHER | END 2022-02-27 18:34 | disposition critical access hospital (66) | LOC: EMS 18:33 | DX: M25.562 Pain in left knee (principal); M54.2 Cervicalgia; R51.9 Headache, unspecified; V40.6XXA Car passenger injured in collision with pedestrian or animal in traffic accident, initial encounter; Y92.413 State road as the place of occurrence of the external cause | CPT/HCPCS: A0425; A0429 ==

== ENCOUNTER 2022-02-27 18:42 | Emergency (ER) | payer OTHER ==
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
[2022-02-27 22:46] VITALS: BP 99/58
== END 2022-02-27 22:48 | disposition home or self-care (01) ==
LOC: EDUNIT# → ED 18:42
DX: S16.1XXA Strain of muscle, fascia and tendon at neck level, initial encounter (principal); R51.9 Headache, unspecified; M25.562 Pain in left knee; V40.6XXA Car passenger injured in collision with pedestrian or animal in traffic accident, initial encounter; Y92.410 Unspecified street and highway as the place of occurrence of the external cause; F17.200 Nicotine dependence, unspecified, uncomplicated
CPT/HCPCS: 99282; 99284